=== PATIENT | male | born 1945 | race Caucasian/White ===

== ENCOUNTER 2017-05-18 16:12 | Inpatient (IN) | payer OTHER ==
[2017-05-18] MEDS ORDERED: SODIUM CHLORIDE 1,000 ML IV STA (16:22)
[2017-05-18] MEDS ORDERED: ALBUTEROL SO4 2.5/IPRATROPIUM 0.5 INH SOL 3 ML VIAL.NEB. NEB ONE ×2 (16:23→16:26)
[2017-05-18] MEDS ORDERED: ACETAMINOPHEN 1000 MG/100 ML VIAL (NON FORMULARY) IVPB ONE (16:25)
[2017-05-18 16:26] VITALS: BMI 45.7
[2017-05-18] MEDS ORDERED: ACETAMINOPHEN INJECTION 100 ML IVPB ONE (16:27)
--- NOTE | 2017-05-18 17:04 | PDOC ---
Attending Attestation - HPI HPI: 05/18/17 17:58 "The patient is a 71 year old male brought via EMS from a senior care, with a significant past medical history of Parkinson's, dementia, HTN, COPD, Edema, who presents to the emergency department with increased lethargy and shortness of breath since yesterday. On presentation it is noted that the patient's O2 saturation level was 85%. The patient denies chest pain, headache and dizziness. Denies fever, chills, nausea, vomit, diarrhea and constipation. Denies dysuria, frequency, urgency and hematuria. Allergies: None Past surgical history: None reported Social history: No alcohol, tobacco or drug use reported " - Physicial Exam PE: 05/18/17 17:58 "GENERAL: Lethargic but arousable HEAD: No signs of trauma EYES: PERRLA, EOMI, sclera anicteric, conjunctiva clear NECK: Normal ROM, supple, no lymphadenopathy, JVD, or masses LUNGS: Breath sounds decreased at the bases. No wheezes, and no crackles HEART: Regular rate and rhythm, normal S1 and S2, no murmurs, rubs or gallops ABDOMEN: Soft, nontender, normoactive bowel sounds. No guarding, no rebound. No masses EXTREMITIES: Normal range of motion, 2+ symmetric LE pitting edema. No clubbing or cyanosis. No cords, erythema, or tenderness NEUROLOGICAL: Normal speech, cranial nerves grossly intact SKIN: Warm, Dry, normal turgor, no rashes or lesions noted. Rectally afebrile" <Edgardo Griffiths - Last Filed: 05/18/17 17:58> - Resident Resident Name: Shaq Dodson - ED Attending Attestation I have performed the following: I have examined & evaluated the patient, The case was reviewed & discussed with the resident, I agree w/resident's findings & plan, Exceptions are as noted - Medical Decision Making 05/18/17 19:45 71-year-old male with a history of multiple medical problems including COPD and dementia presents to the emergency department with lethargy and hypoxia at 85%. Vitals otherwise unremarkable. Workup thus far including labs is remarkable only for some slight CO2 retention to 60, likely chronic given elevated bicarbonate at 30. Patient initially had wheezing however lung sounds were clear after nebs and wheezing has resolved. CT scan of the head is negative. Likely COPD exacerbation. Patient given dose of steroids. Patient to be admitted for further evaluation to Dr. Sharp. Case discussed in detail with admitting physician including history, physical exam and ancillary studies. Admitting physician has assumed care for the patient, will follow all pending diagnostics and will complete the evaluation and treatment. <Garfield George - Last Filed: 05/18/17 19:48>
[2017-05-18 17:05] LABS: HEMATOCRIT 40.1 % (35.4-49); HEMOGLOBIN 13.4 GM/dL (11.7-16.9); MCH 31.9 pg (25.7-33.7); MCHC 33.5 g/dl (32.0-35.9); MEAN CELL VOLUME 95.3 fl (80-96); MEAN PLT VOLUME 7.3 fl (7.5-11.1); PLATELET COUNT 155 K/MM3 (134-434); RBC 4.21 M/mm3 (4.00-5.60); RDW 14.3 % (11.9-15.9); VENOUS PH 7.32 (7.32-7.42); VENOUS PO2 43.3 mmHg (28-48); WHITE BLOOD COUNT 7.1 K/mm3 (4.0-10.0)
[2017-05-18 17:08] LABS: VENOUS PC02 60.5 mmHg (38-52)
[2017-05-18 17:17] LABS: INR 1.03 (0.82-1.09); PROTHROMBIN TIME (PATIENT) 11.6 SEC (9.98-11.88)
--- NOTE | 2017-05-18 17:18 | PDOC ---
History of Present Illness - General Chief Complaint: Weakness Stated Complaint: Weakness Time Seen by Provider: 05/18/17 16:17 - History of Present Illness Initial Comments: 05/18/17 17:21 The patient is a 71 year old male with a history of Parkinson's, dementia, HTN, COPD, Edema who presents for evaluation of lethargy and SOB. The patient presents from his NH for concerns of increased lethargy over the past 2 days. They note that he is normally alert and interactive, but has been more somulent. He was noted to have an O2 saturation to 85% prompting his presentation to the ED for evaluation. The patient denies any fevers, chills, chest pain, nausea, vomiting, abdominal pain, or changes with urination or bowel movements. Past History - Past Medical History Allergies/Adverse Reactions: Allergies Allergy/AdvReac Type Severity Reaction Status Date / Time No Known Allergies Allergy Verified 05/18/17 16:26 Home Medications: Ambulatory Orders Divalproex *ER* [Depakote *ER* -] 500 mg PO HS 05/18/17 Docusate Sodium [Colace] 100 mg PO BID 05/18/17 Ergocalciferol (Vitamin D2) [Vitamin D2] 50,000 unit PO FR 05/18/17 Ipratropium [place] [Atrovent Hfa] 1 inh IH BID 05/18/17 Levothyroxine [Synthroid -] 125 mcg PO DAILY 05/18/17 Lorazepam [Ativan] 0.5 mg PO TID 05/18/17 Losartan Potassium [Cozaar] 25 mg PO DAILY 05/18/17 Metformin HCl 500 mg PO BID 05/18/17 Metoprolol Tartrate 25 mg PO BID 05/18/17 Miconazole Nitrate [Zeasorb-AF] 1 applic TP BID 05/18/17 Olanzapine 20 mg PO HS 05/18/17 Quetiapine Fumarate [Seroquel] 100 tab PO HS 05/18/17 Simvastatin [Zocor -] 5 mg PO HS 05/18/17 Umeclidinium [place] [Incruse Ellipta] 1 inh IH DAILY 05/18/17 - Suicide/Smoking/Psychosocial Hx Smoking History: Unknown if ever smoked Hx Alcohol Use: No Drug/Substance Use Hx: No Review of Systems - Review of Systems Comments:: 05/18/17 17:23 Constitutional: Lethargy. No fevers, chills, fatigue, malaise HEENT: No Rhinorrhea, nasal congestion, visual changes Cardiovascular: No chest pain, syncope, palpitations, lightheadedness Respiratory: SOB, cough. No Hemoptysis, Gastrointestinal: No Abdominal pain, Nausea, Vomiting, Constipation, Diarrhea, Melena Genitourinary: No Dysuria, Frequency, Urgency, Hesitancy, Hematuria, Flank pain Musculoskeletal: No Myalgia, arthralgia Skin: No rashes, itching, bruising, pallor Neurologic: No Headache, Dizziness, Numbness, Weakness, or Tingling Psychiatric: No Hallucinations. No SI or HI *Physical Exam - Vital Signs Last Vital Signs Temp Pulse Resp BP Pulse Ox 98.9 F 74 16 104/55 85 L 05/18/17 16:28 05/18/17 16:15 05/18/17 16:15 05/18/17 16:15 05/18/17 16:15 - Physical Exam Comments: 05/18/17 17:24 General Appearance: Nourished. No Apparent Distress HEENT: EOMI, MIKE. No Pharyngeal Erythema, Tonsillar Exudate, Tonsillar Erythema Neck: No Cervical Lymphadenopathy Respiratory/Chest: Diffuse rhonchi and expiratory wheezing bilaterally noted on exam. No Crackles, Rales, Cardiovascular: Regular Rhythm, Regular Rate. No Murmur, Gallops, Rubs Gastrointestinal/Abdominal: Normal Bowel Sounds, Soft. No Guarding, Rebound, Tenderness Musculoskeletal: No CVA Tenderness Extremity: 2+ pitting edema in the lower extremities. Normal Capillary Refill Integumentary: Normal Color, Dry, Warm Neurologic: Oriented x1, Lethargic. Normal Mood/Affect, Following commands. ED Treatment Course - LABORATORY CBC & Chemistry Diagram: 05/18/17 16:40 05/18/17 16:40 - ADDITIONAL ORDERS Additional order review: Laboratory Results 05/18/17 16:40 VBG pH 7.32 POC VBG pCO2 60.5 H* POC VBG pO2 43.3 Mixed VBG HCO3 30.4 H 05/18/17 16:40 RBC 4.21 MCV 95.3 MCHC 33.5 RDW 14.3 MPV 7.3 L Neutrophils % No Result Required. Lymphocytes % No Result Required. - RADIOLOGY Radiology Studies Ordered: Category Date Time Status HEAD CT WITHOUT CONTRAST [CT] Stat CT Scan 05/18/17 17:06 Ordered CHEST X-RAY PORTABLE* [RAD] Stat Radiology 05/18/17 16:22 Taken - Medications Given in the ED: ED Medications Discontinued Medications Generic Name Dose Route Start Last Admin Trade Name Jazzy PRN Reason Stop Dose Admin Acetaminophen 1,000 mg 05/18/17 16:25 05/18/17 16:36 Ofirmev Injection - IVPB 05/18/17 16:26 Not Given ONCE ONE Albuterol/Ipratropium 1 amp 05/18/17 16:23 05/18/17 16:36 Duoneb - NEB 05/18/17 16:24 1 amp ONCE ONE Administration Sodium Chloride 1,000 mls @ 1,000 mls/hr 05/18/17 16:22 05/18/17 16:37 Normal Saline - IV 05/18/17 17:21 1,000 mls/hr ASDIR STA Administration Medical Decision Making - Medical Decision Making 05/18/17 17:27 The patient is a 71 year old male with a history of Parkinson's, dementia, HTN, COPD, Edema who presents for evaluation of lethargy and SOB. Differential includes but is not limited to: Pneumonia, COPD exacerbation, CHF exacerbation, Sepsis, Intracranial process, infectious, metabolic derangement. Given the patient's physical exam, it is possible his symptoms are due to a chf exacerbation with a copd exacerbation with a possible superimposed infection. We will obtain a cbc, cmp, lactate, troponin, vbg, chest plain film, bnp, and head ct to evaluate for other possible etiologies. We will continue to monitor and reassess. *DC/Admit/Observation/Transfer Diagnosis at time of Disposition: COPD exacerbation - Discharge Dispostion Condition at time of disposition: Stable Admit: Yes - Referrals Referrals: Sharon Bergman MD [Primary Care Provider] - - Patient Instructions - Post Discharge Activity
[2017-05-18 17:20] LABS: ACTIVATED PTT 26.7 SECONDS (26.9-34.4)
[2017-05-18 17:26] LABS: PLATELET ESTIMATE ADEQUATE
[2017-05-18 17:35] LABS: ALBUMIN 3.3 g/dl (3.4-5.0); ANION GAP 4 (8-16); BILIRUBIN,TOTAL 0.5 mg/dL (0.2-1.0); BLOOD UREA NITROGEN 18 mg/dL (7-18); CALCIUM 8.8 mg/dL (8.5-10.1); CHLORIDE 96 mmol/L (98-107); CO2 32 mmol/L (21-32); GLUCOSE,RANDOM 87 mg/dL (74-106); POTASSIUM 4.6 mmol/L (3.5-5.1); SGOT/AST 36 U/L (15-37); SGPT/ALT 17 U/L (12-78); SODIUM 132 mmol/L (136-145); TOT PROT 7.2 g/dl (6.4-8.2)
[2017-05-18 17:37] LABS: ALK PHOS 65 U/L (45-117)
[2017-05-18 18:18] LABS: URINE APPEARANCE CLEAR; URINE BILIRUBIN NEGATIVE (NEGATIVE); URINE BLOOD NEGATIVE (NEGATIVE); URINE COLOR YELLOW; URINE GLUCOSE (UA) NEGATIVE (NEGATIVE); URINE KETONE NEGATIVE (NEGATIVE); URINE LEUK ESTERASE NEGATIVE (NEGATIVE); URINE NITRITE NEGATIVE (NEGATIVE); URINE PROTEIN NEGATIVE (NEGATIVE)
[2017-05-18] MEDS ORDERED: methylPREDNISolone NA SUCC 125 MG/2 ML VIAL IVPUSH ONE (19:14)
[2017-05-18] MEDS ORDERED: methylPREDNISolone NA SUCC 125 MG/2 ML VIAL ONE (20:47)
--- NOTE | 2017-05-18 21:41 | HP ---
CHIEF COMPLAINT: Lethargy, Hypoxia PCP: Dr. Sharon Bergman HISTORY OF PRESENT ILLNESS: This is a 71 y/o man who presents [facility] the [facility] for increased lethargy x2 days. Patient received in the ED lethargic and was found to have an O2 sat of 85%. Patients VBG CO2- 60.5, HCO3 30.4 Patient responds to some verbal stimulus- name only. Limited HPI ER course was notable for: (1) Hypoxia- Spo2 85%~ 97% 3LNC (2) CO2- 60.5 (3) CT head- neg ICH, mild- mid periventricular ischemic changes are noted Recent Travel: None PAST MEDICAL HISTORY: Parkinson's Disease Dementia HTN COPD Edema PAST SURGICAL HISTORY: Social History: Smoking: Unknown Alcohol: None Drugs: None Resides at the [facility] Family History: Unable to obtain Allergies No Known Allergies Allergy (Verified 05/18/17 16:26) HOME MEDICATIONS: Home Medications Medication Instructions Recorded Divalproex *ER* [Depakote *ER* -] 500 mg PO HS 05/18/17 Docusate Sodium [Colace] 100 mg PO BID 05/18/17 Ergocalciferol (Vitamin D2) 50,000 unit PO FR 05/18/17 [Vitamin D2] Ipratropium [place] [Atrovent Hfa] 1 inh IH BID 05/18/17 Levothyroxine [Synthroid -] 125 mcg PO DAILY 05/18/17 Lorazepam [Ativan] 0.5 mg PO TID 05/18/17 Losartan Potassium [Cozaar] 25 mg PO DAILY 05/18/17 Metformin HCl 500 mg PO BID 05/18/17 Metoprolol Tartrate 25 mg PO BID 05/18/17 Miconazole Nitrate [Zeasorb-AF] 1 applic TP BID 05/18/17 Olanzapine 20 mg PO HS 05/18/17 Quetiapine Fumarate [Seroquel] 100 tab PO HS 05/18/17 Simvastatin [Zocor -] 5 mg PO HS 05/18/17 Umeclidinium [place] [Incruse 1 inh IH DAILY 05/18/17 Ellipta] REVIEW OF SYSTEMS CONSTITUTIONAL: Absent: fever, chills, diaphoresis, generalized weakness, malaise, loss of appetite, weight change HEENT: Absent: rhinorrhea, nasal congestion, throat pain, throat swelling, difficulty swallowing, mouth swelling, ear pain, eye pain, visual changes CARDIOVASCULAR: Absent: chest pain, syncope, palpitations, irregular heart rate, lightheadedness , peripheral edema RESPIRATORY: Absent: cough, shortness of breath, dyspnea with exertion, orthopnea, wheezing, stridor, hemoptysis GASTROINTESTINAL: Absent: abdominal pain, abdominal distension, nausea, vomiting, diarrhea, constipation, melena, hematochezia GENITOURINARY: Absent: dysuria, frequency, urgency, hesitancy, hematuria, flank pain, genital pain MUSCULOSKELETAL: Absent: myalgia, arthralgia, joint swelling, back pain, neck pain SKIN: Absent: rash, itching, pallor HEMATOLOGIC/IMMUNOLOGIC: Absent: easy bleeding, easy bruising, lymphadenopathy, frequent infections ENDOCRINE: Absent: unexplained weight gain, unexplained weight loss, heat intolerance, cold intolerance NEUROLOGIC: mental status changes Absent: headache, focal weakness or paresthesias, dizziness, unsteady gait, seizure, bladder or bowel incontinence PSYCHIATRIC: Absent: anxiety, depression, suicidal or homicidal ideation, hallucinations. PHYSICAL EXAMINATION Vital Signs - 24 hr 05/18/17 05/18/17 05/18/17 16:15 16:28 16:35 Temperature 98.9 F Pulse Rate 74 Pulse Rate [ Right] Respiratory 16 Rate Blood Pressure 104/55 Blood Pressure [Right Arm] O2 Sat by Pulse 85 L 97 Oximetry (%) 05/18/17 18:39 Temperature 98.0 F Pulse Rate Pulse Rate [ 80 Right] Respiratory 20 Rate Blood Pressure Blood Pressure 124/76 [Right Arm] O2 Sat by Pulse 100 Oximetry (%) GENERAL: Lethargic, responds to verbal/tactile stimulus, in no acute distress. HEAD: Normal with no signs of trauma. EYES: Pupils equal, round and reactive to light, sclera anicteric, conjunctiva clear. No lid lag. EARS, NOSE, THROAT: Ears normal, nares patent, oropharynx clear without exudates. Dry mucous membranes. NECK: Normal range of motion, supple without lymphadenopathy, JVD, or masses. LUNGS: Bibasilar diffuse crackles, with scattered wheeze noted bilaterally. No accessory muscle use HEART: Regular rate and rhythm, normal S1 and S2 without murmur, rub or gallop. ABDOMEN: Soft, obese, nontender, not distended, normoactive bowel sounds, no guarding, no rebound, no masses. No hepatomegaly or splenomegaly. MUSCULOSKELETAL: Normal range of motion at all joints. No bony deformities or tenderness. No CVA tenderness. UPPER EXTREMITIES: 2+ pulses, warm, well-perfused. No cyanosis. No clubbing. No peripheral edema. LOWER EXTREMITIES: 2+ pulses, warm, well-perfused. No calf tenderness. +2 pitting peripheral edema bilaterally from below knee down to bilateral feet. NEUROLOGICAL: Cranial nerves II-XII intact. Slowed speech. Gait not observed. PSYCHIATRIC: Cooperative. Limited eye contact. Appropriate mood and affect. SKIN: Warm, dry, normal turgor, no rashes or lesions noted, normal capillary refill. Laboratory Results - last 24 hr 05/18/17 05/18/17 05/18/17 16:35 16:40 16:40 WBC 7.1 RBC 4.21 Hgb 13.4 Hct 40.1 MCV 95.3 MCH 31.9 MCHC 33.5 RDW 14.3 Plt Count 155 MPV 7.3 L Total Counted 100 Neutrophils % No Result Required. Neutrophils % (Manual) 42.0 L Band Neutrophils % 2.0 Lymphocytes % No Result Required. Lymphocytes % (Manual) 28.0 Monocytes % (Manual) 19 H* Eosinophils % (Manual) 3.0 Myelocytes % (Man) 2 Metamyelocytes 4 H Platelet Estimate Adequate Platelet Comment No clumping noted PT with INR 11.60 INR 1.03 PTT (Actin FS) 26.7 L VBG pH POC VBG pCO2 POC VBG pO2 Mixed VBG HCO3 Sodium Potassium Chloride Carbon Dioxide Anion Gap BUN Creatinine Creat Clearance w eGFR Random Glucose Lactic Acid Calcium Total Bilirubin AST ALT Alkaline Phosphatase Creatine Kinase Creatine Kinase Index CK-MB (CK-2) Troponin I B-Natriuretic Peptide 195.67 H Total Protein Albumin Urine Color Urine Appearance Urine pH Ur Specific [place] Urine Protein Urine Glucose (UA) Urine Ketones Urine Blood Urine Nitrite Urine Bilirubin Urine Urobilinogen Ur Leukocyte Esterase Blood Type Antibody Screen 05/18/17 05/18/17 05/18/17 16:40 16:40 16:40 WBC RBC Hgb Hct MCV MCH MCHC RDW Plt Count MPV Total Counted Neutrophils % Neutrophils % (Manual) Band Neutrophils % Lymphocytes % Lymphocytes % (Manual) Monocytes % (Manual) Eosinophils % (Manual) Myelocytes % (Man) Metamyelocytes Platelet Estimate Platelet Comment PT with INR INR PTT (Actin FS) VBG pH 7.32 POC VBG pCO2 60.5 H* POC VBG pO2 43.3 Mixed VBG HCO3 30.4 H Sodium 132 L Potassium 4.6 Chloride 96 L Carbon Dioxide 32 Anion Gap 4 L BUN 18 Creatinine 1.0 Creat Clearance w eGFR > 60 Random Glucose 87 Lactic Acid 1.7 Calcium 8.8 Total Bilirubin 0.5 AST 36 ALT 17 Alkaline Phosphatase 65 Creatine Kinase 788 H Creatine Kinase Index 0.7 CK-MB (CK-2) 5.626 H Troponin I < 0.02 B-Natriuretic Peptide Total Protein 7.2 Albumin 3.3 L Urine Color Urine Appearance Urine pH Ur Specific [place] Urine Protein Urine Glucose (UA) Urine Ketones Urine Blood Urine Nitrite Urine Bilirubin Urine Urobilinogen Ur Leukocyte Esterase Blood Type Antibody Screen 05/18/17 05/18/17 16:40 17:30 WBC RBC Hgb Hct MCV MCH MCHC RDW Plt Count MPV Total Counted Neutrophils % Neutrophils % (Manual) Band Neutrophils % Lymphocytes % Lymphocytes % (Manual) Monocytes % (Manual) Eosinophils % (Manual) Myelocytes % (Man) Metamyelocytes Platelet Estimate Platelet Comment PT with INR INR PTT (Actin FS) VBG pH POC VBG pCO2 POC VBG pO2 Mixed VBG HCO3 Sodium Potassium Chloride Carbon Dioxide Anion Gap BUN Creatinine Creat Clearance w eGFR Random Glucose Lactic Acid Calcium Total Bilirubin AST ALT Alkaline Phosphatase Creatine Kinase Creatine Kinase Index CK-MB (CK-2) Troponin I B-Natriuretic Peptide Total Protein Albumin Urine Color Yellow Urine Appearance Clear Urine pH 5.0 Ur Specific [place] 1.018 Urine Protein Negative Urine Glucose (UA) Negative Urine Ketones Negative Urine Blood Negative Urine Nitrite Negative Urine Bilirubin Negative Urine Urobilinogen 2.0 Ur Leukocyte Esterase Negative Blood Type O POSITIVE Antibody Screen Negative ASSESSMENT/PLAN: This is a 71 y/o man with a PMHx of: Parkinson's, Dementia, HTN, COPD, Peripheral Edema. Admitted for Acute on Chronic COPD Exacerbation, Lethargy FEN - Replete lytes prn - NPO Code Status: Full Code Dispo: Requires Inpatient Care Problem List - Problem (1) Acute exacerbation of chronic obstructive pulmonary disease (COPD) Assessment/Plan: - Chest Xray- reviewed - VBG- CO2- 60 - Ordered BIPAP - ABG - Continue Solumederol - Duonebs - Appreciate Pulmonology consult - Monitor vitals - CBCD, BMP in am Code(s): J44.1 - CHRONIC OBSTRUCTIVE PULMONARY DISEASE W (ACUTE) EXACERBATION (2) Lethargy Assessment/Plan: - Likely secondary to Hypercapnia vs Advanced disease process - Head CT-neg ICH, mild-mid periventrical chronic microvascular is chronic changes are noted - Will place patient on BIPAP and trend ABGs - Monitor CBCD, BMP - Monitor vitals - Fall Precautions Code(s): R53.83 - OTHER FATIGUE (3) HTN (hypertension) Assessment/Plan: - Stable - Continue home meds with parameters - Monitor renal function Code(s): I10 - ESSENTIAL (PRIMARY) HYPERTENSION (4) Parkinson's disease Assessment/Plan: - Continue to monitor and treat with interventions accordingly - Fall Precautions Code(s): G20 - PARKINSON'S DISEASE (5) Dementia Assessment/Plan: - Continue to monitor - Will hold meds for now, until patient is lucid Code(s): F03.90 - UNSPECIFIED DEMENTIA WITHOUT BEHAVIORAL DISTURBANCE (6) Peripheral edema Assessment/Plan: - Continue Lasix - Elevate extremities - Strict INOs Code(s): R60.9 - EDEMA, UNSPECIFIED (7) DVT prophylaxis Assessment/Plan: - OOB - Heparin SQ Code(s): [id number] - Visit type - Emergency Visit Emergency Visit: Yes ED Registration Date: 05/18/17 Care time: The patient presented to the Emergency Department on the above date and was hospitalized for further evaluation of their emergent condition. - New Patient This patient is new to me today: Yes Date on this admission: 05/18/17 - Critical Care Critical Care patient: No
[2017-05-19 01:05] LABS: ARTERIAL BLD GAS O2 SATURATION 97.6 % (90-98.9); ARTERIAL BLOOD GAS BASE EXCESS 3.5 meq/l (-2-2); ARTERIAL BLOOD GAS pH 7.34 (7.35-7.45); CARBOXYHEMOGLOBIN 1.6 gm% (0.5-2.0)
[2017-05-19 01:13] LABS: ALLENS TEST POSITIVE
[2017-05-19] MEDS: methylPREDNISolone NA SUCC 40 MG/1 ML VIAL IVPUSH SCH ×2 (03:11→09:46)
[2017-05-19] MEDS ORDERED: ALBUTEROL SO4 2.5/IPRATROPIUM 0.5 INH SOL 3 ML VIAL.NEB. NEB PRN (06:33)
[2017-05-19 06:50] LABS: ARTERIAL BLD GAS O2 SATURATION 99.5 % (90-98.9); ARTERIAL BLOOD GAS BASE EXCESS 4.5 meq/l (-2-2); ARTERIAL BLOOD GAS PCO2 51.4 mmHg (35-45); ARTERIAL BLOOD GAS pH 7.39 (7.35-7.45)
[2017-05-19 06:51] LABS: ALLENS TEST POSITIVE
[2017-05-19] MEDS: LEVOTHYROXINE NA 125 MCG TABLET (FP) PO SCH (07:09)
[2017-05-19] MEDS: metFORMIN HCL 500 MG TABLET (FP) PO SCH ×2 (07:09→16:48)
[2017-05-19 08:19] LABS: BASO % 0.5 % (0-2.0); EOS % 0.1 % (0-4.5); HEMATOCRIT 41.3 % (35.4-49); HEMOGLOBIN 13.8 GM/dL (11.7-16.9); LYMPH % 14.6 % (8-40); MCH 31.7 pg (25.7-33.7); MCHC 33.3 g/dl (32.0-35.9); MEAN CELL VOLUME 95.1 fl (80-96); MEAN PLT VOLUME 7.2 fl (7.5-11.1); MONO % 2.8 % (3.8-10.2); PLATELET COUNT 157 K/MM3 (134-434); RBC 4.35 M/mm3 (4.00-5.60); RDW 14.6 % (11.9-15.9); WHITE BLOOD COUNT 7.8 K/mm3 (4.0-10.0)
[2017-05-19 08:48] LABS: ANION GAP 5 (8-16); BLOOD UREA NITROGEN 17 mg/dL (7-18); CALCIUM 8.5 mg/dL (8.5-10.1); CHLORIDE 98 mmol/L (98-107); CO2 30 mmol/L (21-32); CREATININE 0.7 mg/dL (0.7-1.3); GLUCOSE,RANDOM 116 mg/dL (74-106); MAGNESIUM 2.2 mg/dL (1.8-2.4); PHOSPHOROUS 2.8 mg/dL (2.5-4.9); POTASSIUM 4.8 mmol/L (3.5-5.1); SODIUM 133 mmol/L (136-145)
[2017-05-19] MEDS: METOPROLOL TARTRATE 25 MG TABLET (FP) PO SCH ×2 (09:46→22:53)
[2017-05-19] MEDS: DOCUSATE SODIUM 100 MG CAPSULE (FP) PO SCH ×2 (09:47→22:54)
[2017-05-19] MEDS: LOSARTAN POTASSIUM 25 MG TABLET PO SCH (09:47)
[2017-05-19] MEDS ORDERED: UMECLIDINIUM BROMIDE IH SCH (10:00)
--- NOTE | 2017-05-19 12:11 | CON.PULM ---
Consult Consult Specialty:: PULM/CCM Referred by:: ANAIS Reason for Consultation:: SOB - History of Present Illness Chief Complaint: Lethargy History of Present Illness: 71 M, history of Parkinson's, dementia, HTN, COPD, and CHF. Admitted for the SNF due to lethargy and SOB over the past 2 days. Apparently he is normally alert and interactive. VBG was drawn with PCO2 of 58. He was placed on NIPPV. Currently he is on NC O2. He is awake and alert. Repeat ABG reveals a well compensated chronic respiratory acidosis. CXR: mild increase in vascular markings / no focal infiltrate noted. - History Source History Provided By: Patient, Medical Record Limitations to Obtaining History: Dementia - Alcohol/Substance Use Hx Alcohol Use: No - Smoking History Smoking history: Unknown if ever smoked Home Medications - Allergies Allergies/Adverse Reactions: Allergies Allergy/AdvReac Type Severity Reaction Status Date / Time No Known Allergies Allergy Verified 05/18/17 16:26 - Home Medications Home Medications: Ambulatory Orders Divalproex *ER* [Depakote *ER* -] 500 mg PO HS 05/18/17 Docusate Sodium [Colace] 100 mg PO BID 05/18/17 Ergocalciferol (Vitamin D2) [Vitamin D2] 50,000 unit PO FR 05/18/17 Ipratropium [place] [Atrovent Hfa] 1 inh IH BID 05/18/17 Levothyroxine [Synthroid -] 125 mcg PO DAILY 05/18/17 Lorazepam [Ativan] 0.5 mg PO TID 05/18/17 Losartan Potassium [Cozaar] 25 mg PO DAILY 05/18/17 Metformin HCl 500 mg PO BID 05/18/17 Metoprolol Tartrate 25 mg PO BID 05/18/17 Miconazole Nitrate [Zeasorb-AF] 1 applic TP BID 05/18/17 Olanzapine 20 mg PO HS 05/18/17 Quetiapine Fumarate [Seroquel] 100 tab PO HS 05/18/17 Simvastatin [Zocor -] 5 mg PO HS 05/18/17 Umeclidinium [place] [Incruse Ellipta] 1 inh IH DAILY 05/18/17 Review of Systems - Review of Systems Constitutional: reports: Lethargy, Malaise. denies: Chills, Fever, Night Sweats Eyes: reports: No Symptoms HENT: reports: No Symptoms Neck: reports: No Symptoms Cardiovascular: reports: Shortness of Breath. denies: Chest Pain, Edema, Palpitations Respiratory: reports: Cough, Snoring, SOB. denies: Hemoptysis, Wheezing Gastrointestinal: reports: No Symptoms Genitourinary: reports: No Symptoms Breasts: reports: No Symptoms Reported Musculoskeletal: reports: No Symptoms Integumentary: reports: No Symptoms Neurological: reports: No Symptoms Endocrine: reports: No Symptoms Hematology/Lymphatic: reports: No Symptoms Psychiatric: reports: No Symptoms Physical Exam Vital Sings: Vital Signs Temperature 98.6 F 05/19/17 08:00 Pulse Rate 84 05/19/17 08:00 Respiratory Rate 18 05/19/17 08:00 Blood Pressure 125/69 05/19/17 08:00 O2 Sat by Pulse Oximetry (%) 91 L 05/19/17 07:55 Constitutional: Yes: No Distress, Obese Eyes: Yes: Conjunctiva Clear, EOM Intact HENT: Yes: Atraumatic, Normocephalic Neck: Yes: Supple, Trachea Midline Cardiovascular: Yes: Regular Rate and Rhythm Respiratory: Yes: Diminished, On Nasal O2, Rhonchi. No: Accessory Muscle Use, SOB, Stridor, Tachypnea, Wheezes ...Inspection: Yes: WNL ...Clubbing: No Gastrointestinal: Yes: Normal Bowel Sounds, Soft Renal/: Yes: WNL Breast(s): Yes: WNL Musculoskeletal: Yes: WNL Extremities: Yes: WNL Edema: No Peripheral Pulses WNL: Yes Integumentary: Yes: WNL Neurological: Yes: WNL, Alert, Oriented ...Motor Strength: WNL Psychiatric: Yes: WNL, Alert, Oriented Labs: CBC, BMP 05/19/17 07:00 05/19/17 07:00 ABG Results ABG pH 7.39 (7.35-7.45) 05/19/17 06:30 ABG pCO2 at Pt Temp 51.4 mmHg (35-45) H 05/19/17 06:30 ABG pO2 at Pt Temp 198.0 mmHg (70-100) H* D 05/19/17 06:30 ABG HCO3 30.2 meq/L (22-26) H 05/19/17 06:30 ABG O2 Sat (Measured) 99.5 % (90-98.9) H 05/19/17 06:30 ABG O2 Content 19.2 % vol (15-22) 05/19/17 06:30 ABG Base Excess 4.5 meq/l (-2-2) H 05/19/17 06:30 Imaging - Results Chest X-ray: Report Reviewed, Image Reviewed Problem List - Problems (1) Acute exacerbation of chronic obstructive pulmonary disease (COPD) Code(s): J44.1 - CHRONIC OBSTRUCTIVE PULMONARY DISEASE W (ACUTE) EXACERBATION (2) Dementia Code(s): F03.90 - UNSPECIFIED DEMENTIA WITHOUT BEHAVIORAL DISTURBANCE (3) HTN (hypertension) Code(s): I10 - ESSENTIAL (PRIMARY) HYPERTENSION (4) Lethargy Code(s): R53.83 - OTHER FATIGUE (5) Parkinson's disease Code(s): G20 - PARKINSON'S DISEASE Assessment/Plan Short course of Prednsione O2 as needed NIPPV only as needed Aspiration precautions Would monitor off ABX Should have sleep screen after D/C for OSAS BD TX Will follow Thank you. Dr Rojo
--- NOTE | 2017-05-19 12:14 | EKG ---
Test Reason : Blood Pressure : / mmHG Vent. Rate : 076 BPM Atrial Rate : 076 BPM P-R Int : 140 ms QRS Dur : 106 ms QT Int : 376 ms P-R-T Axes : 047 -37 013 degrees QTc Int : 423 ms NORMAL SINUS RHYTHM LEFT AXIS DEVIATION MINIMAL VOLTAGE CRITERIA FOR LVH, MAY BE NORMAL VARIANT NONSPECIFIC ST ABNORMALITY ABNORMAL ECG NO PREVIOUS ECGS AVAILABLE Confirmed by CONNIE RAWLS MD ([id number]) on 05/19/2017 12:14:21 PM Referred By: Confirmed By:CONNIE RAWLS MD
[2017-05-19] MEDS ORDERED: ALBUTEROL SO4 0.083% IH SOL 2.5 MG/3 ML VIAL.NEB. NEB PRN (12:20)
--- NOTE | 2017-05-19 13:02 | PN ---
Progress Note, Physician History of Present Illness: pt seen/ examined feels better decreased sob. denies cp. morbidly obese pt is smoker- unwilling to quit pt mostly wheelchair bound- says dont walk much. - Current Medication List Current Medications: Active Medications Albuterol Sulfate (Ventolin 0.083% Nebulizer Soln -) 1 amp NEB Q4H PRN PRN Reason: SHORT OF BREATH/WHEEZING Albuterol/Ipratropium (Duoneb -) 1 amp NEB RTID [facility] Divalproex Sodium (Depakote *Er* -) 500 mg PO HS [facility] Docusate Sodium (Colace -) 100 mg PO BID [facility] Last Admin: 05/19/17 09:47 Dose: Not Given Ergocalciferol (Drisdol -) 50,000 unit PO Fr@1000 [facility] Levothyroxine Sodium (Synthroid -) 125 mcg PO DAILY@0700 [facility] Last Admin: 05/19/17 07:09 Dose: 125 mcg Losartan Potassium (Cozaar -) 25 mg PO DAILY [facility] Last Admin: 05/19/17 09:47 Dose: 25 mg Metformin HCl (Glucophage -) 500 mg PO BID@0700,1630 [facility] Last Admin: 05/19/17 07:09 Dose: 500 mg Metoprolol Tartrate (Lopressor -) 25 mg PO BID [facility] Last Admin: 05/19/17 09:46 Dose: 25 mg Non-Formulary Medication (Simvastatin) 5 mg PO [facility] Prednisone (Deltasone -) 40 mg PO DAILY [facility] Stop: 05/22/17 10:01 - Objective Vital Signs: Vital Signs Temperature 98.6 F 05/19/17 08:00 Pulse Rate 84 05/19/17 08:00 Respiratory Rate 18 05/19/17 08:00 Blood Pressure 125/69 05/19/17 08:00 O2 Sat by Pulse Oximetry (%) 92 L 05/19/17 12:15 Constitutional: Yes: No Distress, Calm, Obese Eyes: Yes: Conjunctiva Clear Neck: Yes: Supple Cardiovascular: Yes: Regular Rate and Rhythm Respiratory: Yes: Diminished, Hyperresonant, Poor Air Entry Gastrointestinal: Yes: Soft, Abdomen, Obese Edema: LLE: 2+, RLE: 2+ Neurological: Yes: Alert Labs: CBC, BMP 05/19/17 07:00 05/19/17 07:00 INR, PTT INR 1.03 (0.82-1.09) 05/18/17 16:40 Problem List - Problems (1) Acute exacerbation of chronic obstructive pulmonary disease (COPD) Code(s): J44.1 - CHRONIC OBSTRUCTIVE PULMONARY DISEASE W (ACUTE) EXACERBATION (2) Dementia Code(s): F03.90 - UNSPECIFIED DEMENTIA WITHOUT BEHAVIORAL DISTURBANCE (3) HTN (hypertension) Code(s): I10 - ESSENTIAL (PRIMARY) HYPERTENSION (4) Peripheral edema Code(s): R60.9 - EDEMA, UNSPECIFIED Assessment/Plan clinically better Pulmonary consult noted/ appreciated add lasix physical therapy will order echo . smoking cessation counselling . will follow Anticipate short stay
[2017-05-19] MEDS: predniSONE 20 MG TABLET (UD) PO SCH (13:38)
[2017-05-19] MEDS: ALBUTEROL SO4 2.5/IPRATROPIUM 0.5 INH SOL 3 ML VIAL.NEB. NEB SCH ×2 (14:05→20:45)
[2017-05-19] MEDS: FUROSEMIDE 40 MG TABLET (FP) PO SCH (14:33)
[2017-05-19] MEDS ORDERED: DIVALPROEX NA *ER* EXTEND REL 500 MG TABLET.SA (FP) PO SCH (22:00)
[2017-05-19] MEDS ORDERED: PT OWN MED DRAWER 7, Y5N ONE (22:21)
[2017-05-19] MEDS ORDERED: ATORVASTATIN CA 10 MG TABLET (FP) PO SCH (22:45)
[2017-05-19] MEDS ORDERED: VALPROATE SODIUM 250 MG/5 ML UNIT DOSE CUP PO SCH (22:45)
[2017-05-19] MEDS: HEPARIN NA (PORCINE) 5,000 UNITS/ML 1ML VIAL SQ SCH (22:53)
[2017-05-20 06:16] VITALS: TEMP 98.4
[2017-05-20] MEDS: metFORMIN HCL 500 MG TABLET (FP) PO SCH (06:27)
[2017-05-20] MEDS: LEVOTHYROXINE NA 125 MCG TABLET (FP) PO SCH (06:27)
[2017-05-20] MEDS: ALBUTEROL SO4 2.5/IPRATROPIUM 0.5 INH SOL 3 ML VIAL.NEB. NEB SCH ×2 (07:57→13:00)
[2017-05-20 08:53] LABS: ALBUMIN 3.1 g/dl (3.4-5.0); ANION GAP 5 (8-16); BILIRUBIN,TOTAL 0.4 mg/dL (0.2-1.0); BLOOD UREA NITROGEN 25 mg/dL (7-18); CALCIUM 8.6 mg/dL (8.5-10.1); CHLORIDE 97 mmol/L (98-107); CHOLESTEROL 148 mg/dL (50-200); CO2 33 mmol/L (21-32); CREATININE 0.9 mg/dL (0.7-1.3); GLUCOSE,RANDOM 109 mg/dL (74-106); HDL CHOLESTEROL 33 mg/dL (40-60); LDL CHOLESTEROL (ONLY SJRH) 100 mg/dL (5-100); SGOT/AST 23 U/L (15-37); SGPT/ALT 13 U/L (12-78); SODIUM 135 mmol/L (136-145); TOT PROT 6.9 g/dl (6.4-8.2); TRIGLYCERIDES 106 mg/dL (35-160)
[2017-05-20 08:58] LABS: BASO % 0.3 % (0-2.0); EOS % 0.1 % (0-4.5); HEMATOCRIT 37.5 % (35.4-49); HEMOGLOBIN 12.6 GM/dL (11.7-16.9); LYMPH % 15.6 % (8-40); MCH 31.8 pg (25.7-33.7); MCHC 33.6 g/dl (32.0-35.9); MEAN CELL VOLUME 94.4 fl (80-96); MEAN PLT VOLUME 7.5 fl (7.5-11.1); MONO % 18.1 % (3.8-10.2); NEUT % 65.9 % (42.8-82.8); PLATELET COUNT 165 K/MM3 (134-434); RBC 3.98 M/mm3 (4.00-5.60); RDW 13.9 % (11.9-15.9); WHITE BLOOD COUNT 13.7 K/mm3 (4.0-10.0)
[2017-05-20 09:02] LABS: ALK PHOS 54 U/L (45-117)
[2017-05-20] MEDS: predniSONE 20 MG TABLET (UD) PO SCH (10:30)
[2017-05-20] MEDS: DOCUSATE SODIUM 100 MG CAPSULE (FP) PO SCH (10:30)
[2017-05-20] MEDS: METOPROLOL TARTRATE 25 MG TABLET (FP) PO SCH (10:30)
[2017-05-20] MEDS: LOSARTAN POTASSIUM 25 MG TABLET PO SCH (10:30)
[2017-05-20] MEDS: FUROSEMIDE 40 MG TABLET (FP) PO SCH (10:30)
[2017-05-20] MEDS: HEPARIN NA (PORCINE) 5,000 UNITS/ML 1ML VIAL SQ SCH (10:30)
--- NOTE | 2017-05-20 11:46 | PN ---
Progress Note (short form) - Note Progress Note: Appears clinically stable. Reports feeling better. No acute events overnight. Intake & Output 05/17/17 05/18/17 05/19/17 05/20/17 23:59 23:59 23:59 23:59 Intake Total 750 1400 Balance 750 1400 Weight 234 lb Last Vital Signs Temp Pulse Resp BP Pulse Ox 98.4 F 101 H 20 106/72 95 05/20/17 06:15 05/20/17 08:18 05/20/17 06:15 05/20/17 06:15 05/20/17 08:18 Active Medications Albuterol Sulfate (Ventolin 0.083% Nebulizer Soln -) 1 amp NEB Q4H PRN PRN Reason: SHORT OF BREATH/WHEEZING Albuterol/Ipratropium (Duoneb -) 1 amp NEB RTID [facility] Last Admin: 05/20/17 07:57 Dose: 1 amp Atorvastatin Calcium (Lipitor -) 10 mg PO HS [facility] Last Admin: 05/19/17 22:55 Dose: 10 mg Docusate Sodium (Colace -) 100 mg PO BID [facility] Last Admin: 05/20/17 10:30 Dose: 100 mg Ergocalciferol (Drisdol -) 50,000 unit PO Fr@1000 [facility] Furosemide (Lasix -) 40 mg PO DAILY [facility] Last Admin: 05/20/17 10:30 Dose: 40 mg Heparin Sodium (Porcine) (Heparin -) 5,000 unit SQ BID [facility] Last Admin: 05/20/17 10:30 Dose: 5,000 unit Levothyroxine Sodium (Synthroid -) 125 mcg PO DAILY@0700 [facility] Last Admin: 05/20/17 06:27 Dose: 125 mcg Losartan Potassium (Cozaar -) 25 mg PO DAILY [facility] Last Admin: 05/20/17 10:30 Dose: 25 mg Metformin HCl (Glucophage -) 500 mg PO BID@0700,1630 [facility] Last Admin: 05/20/17 06:27 Dose: 500 mg Metoprolol Tartrate (Lopressor -) 25 mg PO BID [facility] Last Admin: 05/20/17 10:30 Dose: 25 mg Prednisone (Deltasone -) 40 mg PO DAILY [facility] Stop: 05/22/17 10:01 Last Admin: 05/20/17 10:30 Dose: 40 mg Valproate Sodium (Depakene -) 500 mg PO [facility] Last Admin: 05/19/17 22:52 Dose: 500 mg Constitutional: Yes: No Distress, Obese Eyes: Yes: Conjunctiva Clear, EOM Intact HENT: Yes: Atraumatic, Normocephalic Neck: Yes: Supple, Trachea Midline Cardiovascular: Yes: Regular Rate and Rhythm Respiratory: Yes: Diminished, On Nasal O2, Rhonchi. No: Accessory Muscle Use, SOB, Stridor, Tachypnea, Wheezes ...Inspection: Yes: WNL ...Clubbing: No Gastrointestinal: Yes: Normal Bowel Sounds, Soft Renal/: Yes: WNL Breast(s): Yes: WNL Musculoskeletal: Yes: WNL Extremities: Yes: WNL Edema: No Peripheral Pulses WNL: Yes Integumentary: Yes: WNL Neurological: Yes: WNL, Alert, Oriented ...Motor Strength: WNL Psychiatric: Yes: WNL, Alert, Oriented Labs: Laboratory Results - last 24 hr 05/20/17 05/20/17 05/20/17 07:30 07:30 07:30 WBC 13.7 H D RBC 3.98 L Hgb 12.6 Hct 37.5 MCV 94.4 MCH 31.8 MCHC 33.6 RDW 13.9 Plt Count 165 MPV 7.5 Neutrophils % 65.9 Lymphocytes % 15.6 Monocytes % 18.1 H D Eosinophils % 0.1 Basophils % 0.3 Sodium 135 L Potassium 4.0 Chloride 97 L Carbon Dioxide 33 H Anion Gap 5 L BUN 25 H D Creatinine 0.9 D Creat Clearance w eGFR > 60 Random Glucose 109 H Hemoglobin A1c % 6.3 H Calcium 8.6 Total Bilirubin 0.4 AST 23 D ALT 13 D Alkaline Phosphatase 54 Total Protein 6.9 Albumin 3.1 L Triglycerides 106 Cholesterol 148 Total LDL Cholesterol 100 HDL Cholesterol 33 L TSH 0.94 Valproic Acid 05/20/17 07:30 WBC RBC Hgb Hct MCV MCH MCHC RDW Plt Count MPV Neutrophils % Lymphocytes % Monocytes % Eosinophils % Basophils % Sodium Potassium Chloride Carbon Dioxide Anion Gap BUN Creatinine Creat Clearance w eGFR Random Glucose Hemoglobin A1c % Calcium Total Bilirubin AST ALT Alkaline Phosphatase Total Protein Albumin Triglycerides Cholesterol Total LDL Cholesterol HDL Cholesterol TSH Valproic Acid 59.137 Problem List - Problems (1) Acute exacerbation of chronic obstructive pulmonary disease (COPD) Code(s): J44.1 - CHRONIC OBSTRUCTIVE PULMONARY DISEASE W (ACUTE) EXACERBATION (2) Dementia Code(s): F03.90 - UNSPECIFIED DEMENTIA WITHOUT BEHAVIORAL DISTURBANCE (3) HTN (hypertension) Code(s): I10 - ESSENTIAL (PRIMARY) HYPERTENSION (4) Lethargy Code(s): R53.83 - OTHER FATIGUE (5) Parkinson's disease Code(s): G20 - PARKINSON'S DISEASE Assessment/Plan Prednsione O2 as needed Monitor off ABX Should have sleep screen after D/C for OSAS BD TX No pulmonary contraindication for D/C to SNF Dr Rojo Problem List - Problems (1) Acute exacerbation of chronic obstructive pulmonary disease (COPD) Code(s): J44.1 - CHRONIC OBSTRUCTIVE PULMONARY DISEASE W (ACUTE) EXACERBATION (2) Dementia Code(s): F03.90 - UNSPECIFIED DEMENTIA WITHOUT BEHAVIORAL DISTURBANCE (3) HTN (hypertension) Code(s): I10 - ESSENTIAL (PRIMARY) HYPERTENSION (4) Lethargy Code(s): R53.83 - OTHER FATIGUE (5) Parkinson's disease Code(s): G20 - PARKINSON'S DISEASE
--- NOTE | 2017-05-20 11:47 | DS ---
Physical Examination Vital Signs: Vital Signs Temperature 98.4 F 05/20/17 06:15 Pulse Rate 101 H 05/20/17 08:18 Respiratory Rate 20 05/20/17 06:15 Blood Pressure 106/72 05/20/17 06:15 O2 Sat by Pulse Oximetry (%) 95 05/20/17 08:18 Findings/Remarks: feels much better. leg edema resolved wants to go back. mood stable denies cp/ sob. no abd pain. Constitutional: Yes: No Distress, Calm, Obese Eyes: Yes: Conjunctiva Clear Neck: Yes: Supple Cardiovascular: Yes: Regular Rate and Rhythm Respiratory: Yes: CTA Bilaterally Gastrointestinal: Yes: Normal Bowel Sounds, Soft Edema: No Neurological: Yes: Alert Labs: CBC, BMP 05/20/17 07:30 05/20/17 07:30 Discharge Summary Reason For Visit: ACUTE EXACERBATION OF CHRONIC OBSTRUCTURE PULMONAR Current Active Problems Acute exacerbation of chronic obstructive pulmonary disease (COPD) (Acute) COPD exacerbation (Acute) DVT prophylaxis (Acute) Dementia (Acute) HTN (hypertension) (Acute) Lethargy (Acute) Parkinson's disease (Acute) Peripheral edema (Acute) Hospital Course: admitted for acute copd exac. treated with steroids also had leg edema got lasix 40 mg dose- resolved now much better will discharge will decrease lasix 20 mg dose echo as out pt b blockers with caution. pt smoker - smoking cessation counselling provided. meds reconcilled discussed with Dr. Darnell also. ct head also done- ventricular atrophy overall stable d/c time 35 min in documenting/ examining and coordating care. discussed with nursing staff also oxygen prn Condition: Improved - Instructions Referrals: Sharon Bergman MD [Primary Care Provider] - Disposition: [facility] - Home Medications Comprehensive Discharge Medication List: Ambulatory Orders Divalproex *ER* [Depakote *ER* -] 500 mg PO HS 05/18/17 Docusate Sodium [Colace] 100 mg PO BID 05/18/17 Ergocalciferol (Vitamin D2) [Vitamin D2] 50,000 unit PO FR 05/18/17 Ipratropium [place] [Atrovent Hfa] 1 inh IH BID 05/18/17 Levothyroxine [Synthroid -] 125 mcg PO DAILY 05/18/17 Lorazepam [Ativan] 0.5 mg PO TID 05/18/17 Losartan Potassium [Cozaar] 25 mg PO DAILY 05/18/17 Metformin HCl 500 mg PO BID 05/18/17 Metoprolol Tartrate 25 mg PO BID 05/18/17 Miconazole Nitrate [Zeasorb-AF -] 1 applic TP BID 05/18/17 Olanzapine 20 mg PO HS 05/18/17 Quetiapine Fumarate [Seroquel] 100 tab PO HS 05/18/17 Simvastatin [Zocor -] 5 mg PO HS 05/18/17 Umeclidinium [place] [Incruse Ellipta] 1 inh IH DAILY 05/18/17 Albuterol 0.083% Nebulizer [place] [Ventolin 0.083% Nebulizer Soln -] 1 amp NEB Q4H PRN amp 05/20/17 Albuterol 2.5/Ipratropium 0.5 [Duoneb -] 1 amp NEB RTID amp 05/20/17 Furosemide [Lasix] 20 mg PO DAILY #30 tablet 05/20/17 Heparin - 5,000 unit SQ BID vial 05/20/17 Prednisone 10 mg PO DAILY #30 tablet 05/20/17
[2017-05-20 12:30] VITALS: BP 117/56; PULSE 80
[2017-05-25] MEDS ORDERED: ERGOCALCIFEROL (VITAMIN D2) 50,000 UNIT CAPSULE (FP) PO SCH (10:00)
== END 2017-05-20 16:08 | DRG 191 ==
LOC: JER 16:12 → JERBED 19:46 → J6S 05-19 00:21
PROVIDERS: ADMIT Internal Medicine; ATTEND Internal Medicine
DX: J44.1 Chronic obstructive pulmonary disease with (acute) exacerbation (principal); E87.2 Acidosis; F03.90 Unspecified dementia, unspecified severity, without behavioral disturbance, psychotic disturbance, mood disturbance, and anxiety; I10 Essential (primary) hypertension; G20 Parkinson's disease; R60.9 Edema, unspecified
CPT/HCPCS: 36415; 36600; 70450-TC; 71045-TC-FY; 80048; 80053; 80061; 80164; 81003; 82375; 82550; 82553; 82803; 82962; 83036; 83050; 83605; 83721; 83735; 83880; 84100; 84443; 84484; 85025; 85610; 85730; 86850; 86900; 86901; 87040; 87086; 93005; 93010; 94640; 94660; 99285-25; J1644

== ENCOUNTER 2019-03-27 12:02 | Inpatient (IN) | payer OTHER ==
[2019-03-27] MEDS ORDERED: PIPERACILLIN/TAZOB 3.375 GM 3.375 GM in DEXTROSE 5%-WATER - 50 ML IVPB ONE (12:25)
[2019-03-27] MEDS ORDERED: VANCOMYCIN HCL 1,500 MG in DEXTROSE 5%-WATER - 500 ML IVPB ONE (12:25)
[2019-03-27] MEDS ORDERED: VANCOMYCIN 500 MG VIAL (RESTRICTED TO ID ONLY) ONE (12:25)
[2019-03-27] MEDS ORDERED: ACETAMINOPHEN INJECTION 100 ML IVPB ONE (12:25)
[2019-03-27] MEDS ORDERED: VANCOMYCIN 1 GRAM (PRE-DOCKED) 1,000 MG/250 ML BAG IVPB ONE (12:25)
[2019-03-27] MEDS ORDERED: PIPERACILLIN/TAZOB 3.375 GM 3.375 GM/50 ML BAG IVPB ONE (12:26)
--- NOTE | 2019-03-27 12:26 | PDOC ---
History of Present Illness - General Chief Complaint: Lethargy Stated Complaint: SEPSIS Time Seen by Provider: 03/27/19 12:14 History Source: EMS, [facility] Records Exam Limitations: Clinical Condition - History of Present Illness Initial Comments: 73M PMH HTN COPD Dementia IDDM BIBEMS from [facility] due to sob and lethargy. Not able to obtain hx from patient 2/2 clinical condition. EMS unable to obtain further hx from the NH. Past History - Past Medical History Allergies/Adverse Reactions: Allergies Allergy/AdvReac Type Severity Reaction Status Date / Time No Known Allergies Allergy Verified 03/27/19 12:46 Home Medications: Ambulatory Orders Acetaminophen 650 mg PO ASDIR 03/27/19 Albuterol 2.5/Ipratropium 0.5 [Duoneb -] 1 neb IH QID 03/27/19 Albuterol Sulfate Inhaler - [Ventolin Hfa Inhaler -] 1 - 2 inh PO QID 03/27/19 Ascorbic Acid [Vitamin C] 500 mg PO DAILY 03/27/19 Atorvastatin Ca [Lipitor] 10 mg PO HS 03/27/19 Carbidopa/Levodopa 25/100 [Sinemet 25/100 -] 1 each PO TID 03/27/19 Divalproex *ER* [Depakote *ER* -] 1,000 mg PO HS 03/27/19 Divalproex *ER* [Depakote *ER* -] 250 mg PO HS 03/27/19 Furosemide [Lasix] 20 mg PO DAILY 03/27/19 Insulin Lispro [Humalog] 100 unit SQ ASDIR 03/27/19 Ipratropium 0.02% Nebulizer [Atrovent *Nebulizer*] 0.5 mg IH DAILY 03/27/19 Levothyroxine Sodium [Synthroid] 137 mcg PO DAILY 03/27/19 Metoprolol Succinate [Kapspargo Sprinkle] 25 mg PO DAILY 03/27/19 Mineral Oil/Hydrophil Petrolat [Aquaphor Healing Ointment] 50 gm TP ASDIR Olanzapine 20 mg PO HS 03/27/19 Pantoprazole Sodium 40 mg PO DAILY 03/27/19 Quetiapine Fumarate [Seroquel] 300 mg PO BID 03/27/19 Silver Sulfadiazine 1% Top Cr [Silvadene -] 1 applic TP BID 03/27/19 Vit A/Vitamin D3/E/Aloe V/Zinc [Periguard Ointment] 100 gm TP ASDIR 03/27/19 Zinc Sulfate [Orazinc] 220 mg PO DAILY 03/27/19 clonazePAM [Clonazepam] 2 mg PO BID 03/27/19 Anemia: Yes Cardiac Disorders: Yes (edema) COPD: Yes Diabetes: Yes GI Disorders: Yes (constipation) Disorders: Yes (frequents uti) HTN: Yes Hypercholesterolemia: Yes Psychiatric Problems: Yes (bi-polar, schitzoeffective disorder, insomnia, hallucination) Thyroid Disease: Yes (hypo) - Immunization History Immunization Up to Date: Yes - Psycho Social/Smoking Cessation Hx Smoking History: Unknown if ever smoked Hx Alcohol Use: No Drug/Substance Use Hx: No Review of Systems - Review of Systems Able to Perform ROS?: No Comments:: Unable to obtain 2/2 clinical condition. *Physical Exam - Physical Exam GEN: Lethargic, responsive to tactile stimuli HEENT: NC/AT, EOMI, PERRLA. No facial asymmetry. Moist mucous membranes. Normal voice. Supple neck w/ FROM. CV: S1/S2, RRR, no m/r/g LUNG: On 3L NC SaO2 90s. CTAB, no wheezes, crackles, rales, rhonchi. GI: soft, ndnt, +BS, no guarding, no rebound. EXTREMITIES: No LE edema. No obvious deformities of all extremities. SKIN: warm, dry, normal turgor. There are stage II decubs on the lower aspects of the right and left buttocks. PSYCH: Responsive to tactile stimuli. NEURO: Moving all extremities. ED Treatment Course - LABORATORY CBC & Chemistry Diagram: 03/29/19 06:11 03/29/19 06:11 Medical Decision Making - Critical Care Time Total Critical Care Time (minutes): 30 Critical Care Statement: The care of this patient involved high complexity decision making to prevent further life threatening deterioration of the patient 's condition and/or to evaluate & treat vital organ system(s) failure or risk of failure. - Medical Decision Making 03/27/19 12:32 73M COPD BIBEMS from [facility] for sob and lethargy. Limited Hx. DDx - COPD exacerbation, sepsis - eval infectious sources, ?CHF - CBC, CMP, Cardiac, BNP - ABG, VBG - BCX, UCX - EKG - Tylenol, empiric ABX - BiPaP - Admit 03/27/19 13:24 Pt is more responsive s/p BiPaP flu neg UA neg CBC reassuring ABG (pre-bipap) reviewed f/u rest of labs 03/27/19 13:34 EKG 03/27/19 HR 87 WI 118 QRS 104 QTc 430 Sinus rhythm Appears unchanged vs prior EKG in system Elevated troponin 0.17 03/27/19 14:10 BNP elevated Hypernatremic - Ur and Serum Osm - Lasix 40 ED team endorsed to Dr. Bergman // Admitted Discharge - Discharge Information Problems reviewed: Yes Clinical Impression/Diagnosis: COPD exacerbation - Follow up/Referral - Patient Discharge Instructions - Post Discharge Activity
[2019-03-27 12:46] LABS: ARTERIAL BLOOD GAS BASE EXCESS 5.2 meq/l (-2-2); ARTERIAL BLOOD GAS PCO2 58.3 mmHg (35-45); ARTERIAL BLOOD GAS PO2 121 mmHg (80-100); ARTERIAL BLOOD GAS pH 7.35 (7.35-7.45); CARBOXYHEMOGLOBIN 1.1 % (0-2)
[2019-03-27 12:49] LABS: PH,URINE 5.5 (5.0-8.0); URINE APPEARANCE CLEAR; URINE BILIRUBIN NEGATIVE (NEGATIVE); URINE COLOR YELLOW; URINE GLUCOSE (UA) NEGATIVE (NEGATIVE); URINE KETONE NEGATIVE (NEGATIVE); URINE LEUK ESTERASE NEGATIVE (NEGATIVE); URINE NITRITE NEGATIVE (NEGATIVE); URINE PROTEIN TRACE (NEGATIVE)
[2019-03-27 12:51] LABS: BASO % 0.7 % (0-2.0); EOS % 3.8 % (0-4.5); HEMOGLOBIN 11.4 GM/dL (11.7-16.9); MCH 31.8 pg (25.7-33.7); MCHC 31.7 g/dl (32.0-35.9); MEAN CELL VOLUME 100.3 fl (80-96); MONO % 10.6 % (3.8-10.2); NEUT % 61.9 % (42.8-82.8); PLATELET COUNT 146 K/MM3 (134-434); RBC 3.59 M/mm3 (4.00-5.60); RDW 14.7 % (11.9-15.9); WHITE BLOOD COUNT 9.4 K/mm3 (4.0-10.0)
[2019-03-27] MEDS ORDERED: SODIUM CHLORIDE 0.9% 500 ML INFUS.BAG IV ONE (12:55)
--- NOTE | 2019-03-27 13:15 | PDOC ---
Documentation entered by Otto Her SCRIBE, acting as scribe for Henrique Bustamante MD. Henrique Bustamante MD: This documentation has been prepared by the Arden altamirano Nirvannie, SCRIBE, under my direction and personally reviewed by me in its entirety. I confirm that the documentation accurately reflects all work, treatment, procedures, and medical decision making performed by me. Attending Attestation - Resident Resident Name: VillegasGeo - ED Attending Attestation I have performed the following: I have examined & evaluated the patient, The case was reviewed & discussed with the resident, I agree w/resident's findings & plan, Exceptions are as noted - HPI HPI: 03/27/19 12:53 CC: Respiratory Distress HPI: The patient is a 73 year old male, with a significant past medical history of Parkinson's, dementia, HTN, COPD, who presents to the emergency department with via EMS from [facility] with lethargy and shortness of breath. History is limited secondary to patients clinical condition. Allergies: NKDA Primary Care Physician: Dr. Brett Bergman - Physicial Exam PE: 03/27/19 15:24 Vitals: Triage Vital signs reviewed General Appearance: No acute distress, well nourished well developed, Head: Atraumatic, Cardiac: Regular rate and rhythym, no murmurs, no rubs, no gallops, Lungs: Clear to auscultation bilateral, good air movement bilaterally, Abdomen: Soft, non distended, normal bowel sounds, non tender to palpation Extremities: Full range of motion to all extremities, no cyanosis, clubbing, or edema Skin: Warm and dry, no rashes or lesions, no rash, no petechiae groove Left external shadow shadow needed Psych: Normal mood, normal affect - Medical Decision Making 03/27/19 15:25 73 years old with lethargy now improving on BiPAP history and examination based on laboratory analysis and chest x-ray is consistent with CHF exacerbation laboratory analysis also notable for hypernatremia Serum and urine osoms have been ordered patient will be admitted to medicine on telemetry for further management. 03/31/19 13:17
[2019-03-27 13:18] LABS: INR 1.07 (0.83-1.09); PROTHROMBIN TIME (PATIENT) 12.6 SEC (9.7-13.0)
[2019-03-27 13:20] LABS: ACTIVATED PTT 26.5 SECONDS (25.2-36.5)
[2019-03-27 13:31] LABS: ALBUMIN 2.3 g/dl (3.4-5.0); ANISOCYTOSIS 0; BILIRUBIN,TOTAL 0.4 mg/dL (0.2-1); BLOOD UREA NITROGEN 27.9 mg/dL (7-18); CALCIUM 8.6 mg/dL (8.5-10.1); CREATININE 1.2 mg/dL (0.55-1.3); MACROCYTOSIS 0; PLATELET ESTIMATE NORMAL; POTASSIUM 4.7 mmol/L (3.5-5.1); TOT PROT 6.3 g/dl (6.4-8.2)
[2019-03-27 13:48] LABS: N-TERMINAL BNP 1237.9 pg/ml (5-125)
[2019-03-27] MEDS ORDERED: FUROSEMIDE 40 MG/4 ML INJECTABLE VIAL IVPUSH ONE (14:10)
[2019-03-27] MEDS ORDERED: DEXTROSE 5%-WATER - 500 ML IV SCH (14:15)
[2019-03-27] MEDS ORDERED: FUROSEMIDE 40 MG/4 ML INJECTABLE VIAL ONE (14:44)
[2019-03-27 15:05] LABS: MAGNESIUM 2.7 mg/dL (1.8-2.4)
[2019-03-27] MEDS ORDERED: ACETAMINOPHEN 325 MG TABLET (FP) PO PRN (17:33)
--- NOTE | 2019-03-27 17:43 | HP ---
Admitting History and Physical - Primary Care Physician PCP: Sharon Bergman - Admission History of Present Illness: The patient is a 73 year old male, with a significant past medical history of Parkinson's, dementia, HTN, COPD, schizophrenia, bipolar who presents to the emergency department with via EMS from [facility] with lethargy and shortness of breath. pt found in chf exac as well as cpod given iv lasix Placed on Bipap Also received vano and zosyn as has fever- cultures send. admitted to tele Case d/w er physician Chart reviewed Ekg- ok +ve troponins Elevated bnp Pt has been [facility] in jail for Acute renal insufficiency. Pt seen/ examined in tele On bipap Drowsy but arousable. Pt is poor historian All h/o from records On BIPAP [facility] records reviewed- On multiple psych meds History Source: Medical Record Limitations to Obtaining History: Clinical Condition - Smoking History Smoking history: Unknown if ever smoked Have you smoked in the past 12 months: No - Alcohol/Substance Use Hx Alcohol Use: No Home Medications - Allergies Allergies/Adverse Reactions: Allergies Allergy/AdvReac Type Severity Reaction Status Date / Time No Known Allergies Allergy Verified 03/27/19 12:46 - Home Medications Home Medications: Ambulatory Orders Acetaminophen 650 mg PO ASDIR 03/27/19 Albuterol 2.5/Ipratropium 0.5 [Duoneb -] 1 neb IH QID 03/27/19 Albuterol Sulfate Inhaler - [Ventolin Hfa Inhaler -] 1 - 2 inh PO QID 03/27/19 Ascorbic Acid [Vitamin C] 500 mg PO DAILY 03/27/19 Atorvastatin Ca [Lipitor] 10 mg PO HS 03/27/19 Carbidopa/Levodopa 25/100 [Sinemet 25/100 -] 1 each PO TID 03/27/19 Divalproex *ER* [Depakote *ER* -] 1,000 mg PO DAILY 03/27/19 Furosemide [Lasix] 20 mg PO DAILY 03/27/19 Insulin Lispro [Humalog] 100 unit SQ ASDIR 03/27/19 Ipratropium 0.02% Nebulizer [Atrovent *Nebulizer*] 0.5 mg IH DAILY 03/27/19 Levothyroxine Sodium [Synthroid] 137 mcg PO DAILY 03/27/19 Metoprolol Succinate [Kapspargo Sprinkle] 25 mg PO DAILY 03/27/19 Mineral Oil/Hydrophil [place] [Aquaphor Healing Ointment] 50 gm TP ASDIR Olanzapine 20 mg PO HS 03/27/19 Pantoprazole Sodium 40 mg PO DAILY 03/27/19 Quetiapine Fumarate [Seroquel] 300 mg PO BID 03/27/19 Silver Sulfadiazine 1% Top Cr [Silvadene -] 1 applic TP BID 03/27/19 Vit A/Vitamin D3/E/Aloe V/Zinc [Periguard Ointment] 100 gm TP ASDIR 03/27/19 Zinc Sulfate [Orazinc] 220 mg PO DAILY 03/27/19 clonazePAM [Clonazepam] 2 mg PO BID 03/27/19 Review of Systems Unable to obtain ROS, reason: clinical condition Physical Examination Vital Signs: Vital Signs Temperature 100.1 F H 03/27/19 12:14 Pulse Rate 80 03/27/19 16:16 Respiratory Rate 20 03/27/19 16:16 Blood Pressure 119/70 03/27/19 16:16 O2 Sat by Pulse Oximetry (%) 99 03/27/19 16:16 Constitutional: Yes: No Distress Eyes: Yes: Conjunctiva Clear Neck: Yes: Supple Cardiovascular: Yes: Regular Rate and Rhythm Respiratory: Yes: Rhonchi (bilateral rhonchi) Gastrointestinal: Yes: Soft, Abdomen, Obese Edema: LLE: 1+, RLE: 1+ Neurological: Yes: Lethargy. No: Alert Psychiatric: No: Alert Labs: CBC, BMP 03/27/19 12:25 03/27/19 12:25 Imaging - Results Chest X-ray: Report Reviewed EKG: Report Reviewed Problem List - Problems (1) CHF exacerbation Code(s): I50.9 - HEART FAILURE, UNSPECIFIED (2) Schizophrenia Code(s): F20.9 - SCHIZOPHRENIA, UNSPECIFIED (3) Acute exacerbation of chronic obstructive pulmonary disease (COPD) Code(s): J44.1 - CHRONIC OBSTRUCTIVE PULMONARY DISEASE W (ACUTE) EXACERBATION (4) Dementia Code(s): F03.90 - UNSPECIFIED DEMENTIA WITHOUT BEHAVIORAL DISTURBANCE (5) Lethargy Code(s): R53.83 - OTHER FATIGUE (6) Parkinson's disease Code(s): G20 - PARKINSON'S DISEASE (7) Peripheral edema Code(s): R60.9 - EDEMA, UNSPECIFIED (8) Fever Code(s): R50.9 - FEVER, UNSPECIFIED Assessment/Plan Admit to tele i/v lasix BIPAP start on steroids daily weigh echo Hold psych nmeds for now will consult psych also for adjustment of meds I/D , pulmonary and cardiology consults condition guarded will follow
[2019-03-27] MEDS: methylPREDNISolone NA SUCC 40 MG/1 ML VIAL IVPUSH SCH ×2 (18:24→21:59)
[2019-03-27] MEDS: ALBUTEROL SO4 2.5/IPRATROPIUM 0.5 INH SOL 3 ML VIAL.NEB. NEB SCH (20:47)
[2019-03-27 21:02] VITALS: BMI 34.0
--- NOTE | 2019-03-27 21:23 | PN ---
Progress Note (short form) - Note Progress Note: ID CONSULT DICTATED R/O NH ACQUIRED PNEUMONIA COPD ?CHF HYPERNATREMIA OBS AWAIT C/S EMPIRIC ZOSYN
[2019-03-27] MEDS: SILVER SULFADIAZINE 1% TOP CREAM 50 GM JAR TP SCH (21:59)
[2019-03-27] MEDS: CARVEDILOL 3.125 MG TABLET (FP) PO SCH (21:59)
[2019-03-27] MEDS: ATORVASTATIN CA 10 MG TABLET (FP) PO SCH (21:59)
[2019-03-27] MEDS: CARBIDOPA/LEVODOPA 25/100 TABLET (FP) PO SCH (21:59)
[2019-03-27] MEDS: HEPARIN NA (PORCINE) 5,000 UNITS/ML 1ML VIAL SQ SCH (21:59)
[2019-03-28] MEDS ORDERED: PIPERACILLIN/TAZOBACTAM 3.375 GM VIAL IVPB ONE ×3 (02:28→17:02)
[2019-03-28] MEDS ORDERED: DEXTROSE 5%-WATER - 50 ML IVPB ONE ×3 (02:28→17:02)
[2019-03-28] MEDS: PIPERACILLIN/TAZOB 3.375 GM 3.375 GM in DEXTROSE 5%-WATER - 50 ML IVPB SCH ×3 (02:40→17:12)
[2019-03-28] MEDS: methylPREDNISolone NA SUCC 40 MG/1 ML VIAL IVPUSH SCH ×4 (02:40→22:24)
[2019-03-28] MEDS ORDERED: LEVOTHYROXINE NA 112 MCG TABLET (FP) ONE (06:30)
[2019-03-28] MEDS ORDERED: LEVOTHYROXINE NA 25 MCG TABLET (FP) ONE (06:30)
[2019-03-28] MEDS: LEVOTHYROXINE 112 MCG, LEVOTHYROXINE 25 MCG PO SCH (06:48)
[2019-03-28] MEDS: INSULIN SLIDING SCALE (NOVOLOG) 1 VIAL SQ SCH ×3 (06:48→16:54)
[2019-03-28] MEDS: CARBIDOPA/LEVODOPA 25/100 TABLET (FP) PO SCH ×3 (06:48→22:25)
[2019-03-28 07:03] LABS: BASO % 0.2 % (0-2.0); HEMATOCRIT 39.6 % (35.4-49); HEMOGLOBIN 12.9 GM/dL (11.7-16.9); LYMPH % 9.5 % (8-40); MCH 31.8 pg (25.7-33.7); MCHC 32.5 g/dl (32.0-35.9); MEAN CELL VOLUME 97.7 fl (80-96); MEAN PLT VOLUME 9.3 fl (7.5-11.1); MONO % 1.6 % (3.8-10.2); NEUT % 88.7 % (42.8-82.8); PLATELET COUNT 178 K/MM3 (134-434); RBC 4.06 M/mm3 (4.00-5.60); RDW 13.8 % (11.9-15.9); WHITE BLOOD COUNT 10.4 K/mm3 (4.0-10.0)
[2019-03-28 07:42] LABS: ALBUMIN 2.9 g/dl (3.4-5.0); BILIRUBIN,TOTAL 0.6 mg/dL (0.2-1); BLOOD UREA NITROGEN 29.2 mg/dL (7-18); CALCIUM 9.5 mg/dL (8.5-10.1); CREATININE 1.3 mg/dL (0.55-1.3); MAGNESIUM 2.8 mg/dL (1.8-2.4); POTASSIUM 4.1 mmol/L (3.5-5.1); TOT PROT 7.9 g/dl (6.4-8.2)
[2019-03-28] MEDS: ALBUTEROL SO4 2.5/IPRATROPIUM 0.5 INH SOL 3 ML VIAL.NEB. NEB SCH ×4 (07:42→20:50)
[2019-03-28] MEDS: PANTOPRAZOLE 40 MG TABLET (FP) PO SCH (09:41)
[2019-03-28] MEDS: HEPARIN NA (PORCINE) 5,000 UNITS/ML 1ML VIAL SQ SCH ×2 (09:41→22:24)
[2019-03-28] MEDS: ZINC SULFATE 220 MG CAPSULE (FP) PO SCH (09:41)
[2019-03-28] MEDS: DIVALPROEX NA *ER* EXTEND REL 500 MG TABLET.SA (FP) PO SCH (09:42)
[2019-03-28] MEDS: CARVEDILOL 3.125 MG TABLET (FP) PO SCH ×2 (09:42→22:25)
[2019-03-28] MEDS: SILVER SULFADIAZINE 1% TOP CREAM 50 GM JAR TP SCH ×2 (09:43→22:26)
--- NOTE | 2019-03-28 09:43 | CON.CARD ---
Consult Consult Specialty:: Cardiology Referred by:: Dr. Bergman Reason for Consultation:: CHF - History of Present Illness Chief Complaint: Lethargy and SOB History of Present Illness: The patient is a 73 year old male, with a significant past medical history of Parkinson's, dementia, HTN, COPD, schizophrenia, bipolar who presents to the emergency department with via EMS from [facility] with lethargy and shortness of breath. Patient has been receiving IVF in shelter for renal insuffiency. History is limited by his dementia. He denies CP or SOB at this time. 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: No: Alzheimer's, CVA, Dementia, Migraine, Multiple Sclerosis, Peripheral Neuropathy, Parkinson's, Seizure, Syncope, TIA, Vertigo, Other Cardio/Vascular: No: AFIB, Aneurysm, Aortic Insufficiency, Aortic Stenosis, CAD , CHF, Deep Vein Thrombosis, HTN, Hyperlipdemia, MA, Mitral Insufficiency, Mitral Stenosis, Murmur, Pulmonary Hypertension, Other Pulmonary: No: Asthma, Bronchitis, Cancer, COPD, O2 Dependent, Pneumonia, Previously Intubated, Pulmonary Embolus, Pulmonary Fibrosis, Sleep Apnea, Other Gastrointestinal: No: Ascites, Cancer, Constipation, Crohn's Disease, Diverticulitis, Diverticulosis, Esophageal Varices, Gastritis, GERD, GI Bleed, Hemorrhoids, Hiatal Hernia, Inflamatory Bowel Disease, Irritable Bowel Disease, Pancreatitis, Peptic Ulcer Disease, Ulcerative Colitis, Other Hepatobiliary: No: Cirrhosis, Cholelithiasis, Cholecystitis, Choledocholithiasis , Hepatitis A, Hepatitis B, Hepatitis C, Other Renal/: No: Renal Failure, Renal Inusuff, BPH, Cancer, Hematuria, Hemodialysis , Neurogenic Bladder, Renal Calculi, UTI, Other Heme/Onc: No: Anemia, B12 Deficiency, Bleeding Disorder, Cancer, Current Chemotherapy, Current Radiation Therapy, Hemochromatosis, Hypercoaguable State, Myeloproliferative Synd, Sickle Cell Disease, Sickle Cell Trait, Thrombocytopenia, Other Infectious Disease: No: AIDS, C-Diff, Herpes Zoster, HIV, MRSA, STD's, Tuberculosis, VREF, Other Psych: No: Addictions, Anxiety, Bipolar, Depression, Panic, Psychosis, Schizophrenia, Other Musculoskeletal: No: Bursitis, Chronic low back pain, Hemiparesis, Hemiplegia, Osteoarthritis, Paraplegia, Other Rheumatology: No: Fibromyalgia, Gout, Lupus, Rheumatoid Arthritis, Sarcoidosis, Vasculitis, Other Endocrine: Yes: Diabetes Mellitus - Alcohol/Substance Use Hx Alcohol Use: No - Smoking History Smoking history: Unknown if ever smoked Have you smoked in the past 12 months: No - Social History Usual Living Arrangement: Custodial History of Recent Travel: No Home Medications - Allergies Allergies/Adverse Reactions: Allergies Allergy/AdvReac Type Severity Reaction Status Date / Time No Known Allergies Allergy Verified 03/27/19 12:46 - Home Medications Home Medications: Ambulatory Orders Acetaminophen 650 mg PO ASDIR 03/27/19 Albuterol 2.5/Ipratropium 0.5 [Duoneb -] 1 neb IH QID 03/27/19 Albuterol Sulfate Inhaler - [Ventolin Hfa Inhaler -] 1 - 2 inh PO QID 03/27/19 Ascorbic Acid [Vitamin C] 500 mg PO DAILY 03/27/19 Atorvastatin Ca [Lipitor] 10 mg PO HS 03/27/19 Carbidopa/Levodopa 25/100 [Sinemet 25/100 -] 1 each PO TID 03/27/19 Divalproex *ER* [Depakote *ER* -] 1,000 mg PO HS 03/27/19 Divalproex *ER* [Depakote *ER* -] 250 mg PO HS 03/27/19 Furosemide [Lasix] 20 mg PO DAILY 03/27/19 Insulin Lispro [Humalog] 100 unit SQ ASDIR 03/27/19 Ipratropium 0.02% Nebulizer [Atrovent *Nebulizer*] 0.5 mg IH DAILY 03/27/19 Levothyroxine Sodium [Synthroid] 137 mcg PO DAILY 03/27/19 Metoprolol Succinate [Kapspargo Sprinkle] 25 mg PO DAILY 03/27/19 Mineral Oil/Hydrophil Petrolat [Aquaphor Healing Ointment] 50 gm TP ASDIR Olanzapine 20 mg PO HS 03/27/19 Pantoprazole Sodium 40 mg PO DAILY 03/27/19 Quetiapine Fumarate [Seroquel] 300 mg PO BID 03/27/19 Silver Sulfadiazine 1% Top Cr [Silvadene -] 1 applic TP BID 03/27/19 Vit A/Vitamin D3/E/Aloe V/Zinc [Periguard Ointment] 100 gm TP ASDIR 03/27/19 Zinc Sulfate [Orazinc] 220 mg PO DAILY 03/27/19 clonazePAM [Clonazepam] 2 mg PO BID 03/27/19 Family Medical History Family History: Unremarkable (non contributory) Review of Systems Findings/Remarks: see HPI - Review of Systems Constitutional: reports: No Symptoms Eyes: reports: No Symptoms HENT: reports: No Symptoms Neck: reports: No Symptoms Cardiovascular: reports: Shortness of Breath Respiratory: reports: No Symptoms Gastrointestinal: reports: No Symptoms Genitourinary: reports: No Symptoms Breasts: reports: No Symptoms Reported Musculoskeletal: reports: No Symptoms Neurological: reports: No Symptoms Endocrine: reports: No Symptoms Hematology/Lymphatic: reports: No Symptoms Psychiatric: reports: No Symptoms - Risk Factors Known Risk Factors: Yes: Diabetes Mellitus Vital Signs: Vital Signs Temperature 97.9 F 03/28/19 06:00 Pulse Rate 76 03/28/19 06:00 Respiratory Rate 20 03/28/19 06:00 Blood Pressure 146/82 03/28/19 06:00 O2 Sat by Pulse Oximetry (%) 96 03/28/19 07:41 Constitutional: Yes: Calm Respiratory: Yes: Rhonchi Cardiovascular: Yes: Regular Rate and Rhythm JVD: No Heart Sounds: Yes: S1, S2 Murmur: Yes: Systolic Murmur (loud systolic murmur RSB) Edema: Yes Edema: LLE: 1+, RLE: 1+ - Other Data Labs, Other Data: CBC, BMP 03/28/19 06:30 03/28/19 06:30 INR, PTT INR 1.07 (0.83-1.09) 03/27/19 12:25 Troponin, BNP 03/27/19 03/27/19 03/27/19 12:25 12:25 16:50 Troponin I 0.17 H 0.13 H B-Natriuretic Peptide 1237.9 H 03/28/19 06:30 Troponin I 0.09 H B-Natriuretic Peptide Troponin, BNP 03/27/19 03/27/19 03/27/19 12:25 12:25 16:50 Troponin I 0.17 H 0.13 H B-Natriuretic Peptide 1237.9 H 03/28/19 06:30 Troponin I 0.09 H B-Natriuretic Peptide Microbiology 03/27/19 12:20 Urine - Urine - Catheterized Urine Culture - Final NO GROWTH OBTAINED Laboratory Tests 03/27/19 03/27/19 03/27/19 12:20 12:25 16:50 WBC RBC Plt Count Sodium Potassium Creatinine Troponin I 0.13 H B-Natriuretic Peptide 1237.9 H Influenza A (Rapid) Negative Influenza B (Rapid) Negative 03/28/19 03/28/19 06:30 06:30 WBC 10.4 H RBC 4.06 Plt Count 178 D Sodium 155 H Potassium 4.1 Creatinine 1.3 Troponin I 0.09 H B-Natriuretic Peptide Influenza A (Rapid) Influenza B (Rapid) NSR 87bpm, poor R wave Echo: Pending Imaging - Results Chest X-ray: Image Reviewed MRI: Image Reviewed Assessment/Plan 73 year old male, with a significant past medical history of Parkinson's, dementia, HTN, COPD, schizophrenia, bipolar who presents to the emergency department with via EMS from [facility] with lethargy and shortness of breath. Patient has been receiving IVF in shelter for renal insuffiency. IMP: Murmur Lethargy of unclear etiology Hypernatremia Parkinson's disease Dementia Psych disorder REC: 1. Hypernatremia suggests free water deficit. Would hold Lasix and suggest renal consult. 2. Echo to assess EF, murmur. 3. Do not suspect borderline TnI represents ACS. Flat, nonischemic ECG. May be borderline elevated in setting of chronic valvular heart dz (murmur), suspect the BNP is from same. 4. Cont tele Will follow Please call as /if needed.
[2019-03-28] MEDS ORDERED: FUROSEMIDE 40 MG/4 ML INJECTABLE VIAL IVPUSH SCH (10:00)
[2019-03-28] MEDS ORDERED: PATIENT'S OWN MEDICATION (NON-FORMULARY) (Levothyroxine Sodium [Synthroid] 137 MCG) PO SCH (10:00)
--- NOTE | 2019-03-28 11:17 | PN ---
Progress Note (short form) - Note Progress Note: Pt seen/ examined more alert/ awake pulls out iv/ gets aggressive Cardio/ i/d consult noted Vital Signs Temp 97.9 F 03/28/19 06:00 Pulse 76 03/28/19 06:00 Resp 20 03/28/19 06:00 BP 146/82 03/28/19 06:00 Pulse Ox 96 03/28/19 07:41 Intake & Output 03/27/19 03/27/19 03/28/19 11:59 23:59 11:59 Weight 211 lb 3.2 oz 208 lb 12.8 oz Other: Voiding Method Incontinent Height 5 ft 6 in Body Mass Index (BMI) 34.0 Weight Measurement Method Stated by Caregiver Patient Lift Scale Active Medications Acetaminophen (Tylenol -) 650 mg PO Q6H PRN PRN Reason: PAIN LEVEL 1-5 Albuterol/Ipratropium (Duoneb -) 1 amp NEB RQID [facility] Last Admin: 03/28/19 07:42 Dose: 1 amp Atorvastatin Calcium (Lipitor -) 10 mg PO HS [facility] Last Admin: 03/27/19 21:59 Dose: 10 mg Carbidopa/Levodopa (Sinemet 25/100 -) 1 each PO TID [facility] Last Admin: 03/28/19 06:48 Dose: 1 each Carvedilol (Coreg -) 3.125 mg PO BID [facility] Last Admin: 03/28/19 09:42 Dose: 3.125 mg Clonazepam (Klonopin -) 1 mg PO BID [facility] Divalproex Sodium (Depakote *Er* -) 1,000 mg PO DAILY [facility] Last Admin: 03/28/19 09:42 Dose: 1,000 mg Heparin Sodium (Porcine) (Heparin -) 5,000 unit SQ BID [facility] Last Admin: 03/28/19 09:41 Dose: 5,000 unit Piperacillin Sod/Tazobactam (Sod 3.375 gm/ Dextrose) 50 mls @ 100 mls/hr IVPB Q8H-IV [facility]; Protocol Last Admin: 03/28/19 09:42 Dose: 100 mls/hr Insulin Aspart (Novolog Vial Sliding Scale -) 1 vial SQ TIDAC [facility]; Protocol Last Admin: 03/28/19 06:48 Dose: 3 units Levothyroxine Sodium 112 mcg/ (Levothyroxine Sodium 25 mcg) 137 mcg PO DAILY@ 0700 [facility] Last Admin: 03/28/19 06:48 Dose: 137 mcg Methylprednisolone Sodium Succinate (Solu-Medrol -) 40 mg IVPUSH Q6H-IV [facility] Last Admin: 03/28/19 09:41 Dose: 40 mg Non-Formulary Medication (Olanzapine [Olanzapine]) 20 mg PO HS [facility] Pantoprazole Sodium (Protonix -) 40 mg PO DAILY [facility] Last Admin: 03/28/19 09:41 Dose: 40 mg Quetiapine Fumarate (Seroquel -) 100 mg PO BID [facility] Silver Sulfadiazine (Silvadene -) 1 applic TP BID [facility] Last Admin: 03/28/19 09:43 Dose: 1 applic Zinc Sulfate (Orazinc -) 220 mg PO DAILY [facility] Last Admin: 03/28/19 09:41 Dose: 220 mg CBC, BMP 03/28/19 06:30 03/28/19 06:30 Abnormal Lab Results 03/27/19 03/27/19 03/27/19 12:25 12:25 12:25 WBC RBC 3.59 L Hgb 11.4 L MCV 100.3 H MCHC 31.7 L Absolute Neuts (auto) Neutrophils % Monocytes % 10.6 H Eosinophils % (Manual) 6.0 H D Myelocytes % (Man) 3 H D ABG pCO2 at Pt Temp ABG pO2 at Pt Temp ABG HCO3 ABG Base Excess Sodium 159 H Chloride 127 H Carbon Dioxide 33 H Anion Gap -1 L BUN 27.9 H Random Glucose Hemoglobin A1c % Magnesium 2.7 H AST 81 H ALT 10 L Troponin I 0.17 H B-Natriuretic Peptide 1237.9 H Total Protein 6.3 L Albumin 2.3 L Triglycerides HDL Cholesterol 03/27/19 03/27/19 03/28/19 12:30 16:50 06:30 WBC 10.4 H RBC Hgb MCV 97.7 H MCHC Absolute Neuts (auto) 9.2 H Neutrophils % 88.7 H D Monocytes % 1.6 L D Eosinophils % (Manual) Myelocytes % (Man) ABG pCO2 at Pt Temp 58.3 H ABG pO2 at Pt Temp 121 H ABG HCO3 31.5 H ABG Base Excess 5.2 H Sodium Chloride Carbon Dioxide Anion Gap BUN Random Glucose Hemoglobin A1c % Magnesium AST ALT Troponin I 0.13 H B-Natriuretic Peptide Total Protein Albumin Triglycerides HDL Cholesterol 03/28/19 03/28/19 06:30 06:30 WBC RBC Hgb MCV MCHC Absolute Neuts (auto) Neutrophils % Monocytes % Eosinophils % (Manual) Myelocytes % (Man) ABG pCO2 at Pt Temp ABG pO2 at Pt Temp ABG HCO3 ABG Base Excess Sodium 155 H Chloride 117 H Carbon Dioxide 36 H Anion Gap 2 L BUN 29.2 H Random Glucose 167 H Hemoglobin A1c % 6.4 H Magnesium 2.8 H AST 82 H ALT Troponin I 0.09 H B-Natriuretic Peptide Total Protein Albumin 2.9 L Triglycerides 252 H HDL Cholesterol 31 L Microbiology 03/27/19 12:25 Gram Stain - Final Buttock - Right Wound Culture - Preliminary Group D Strep Or Entero Coccus 03/27/19 12:20 Urine Culture - Final Urine - Urine - Catheterized NO GROWTH OBTAINED Physical Examination Constitutional: Yes: No Distress. more awake Eyes: Yes: Conjunctiva Clear Neck: Yes: Supple Cardiovascular: Yes: Regular Rate and Rhythm Respiratory: Yes: Rhonchi (bilateral rhonchi)- improved Gastrointestinal: Yes: Soft, Abdomen, Obese Edema: LLE: 1+, RLE: 1+ Neurological: Yes: : Alert Psychiatric: No: Alert Imaging - Results Chest X-ray: Report Reviewed EKG: Report Reviewed Problem List - Problems (1) CHF exacerbation Code(s): I50.9 - HEART FAILURE, UNSPECIFIED (2) Schizophrenia Code(s): F20.9 - SCHIZOPHRENIA, UNSPECIFIED (3) Acute exacerbation of chronic obstructive pulmonary disease (COPD) Code(s): J44.1 - CHRONIC OBSTRUCTIVE PULMONARY DISEASE W (ACUTE) EXACERBATION (4) Dementia Code(s): F03.90 - UNSPECIFIED DEMENTIA WITHOUT BEHAVIORAL DISTURBANCE (5) Lethargy Code(s): R53.83 - OTHER FATIGUE (6) Parkinson's disease Code(s): G20 - PARKINSON'S DISEASE (7) Peripheral edema Code(s): R60.9 - EDEMA, UNSPECIFIED (8) Fever Code(s): R50.9 - FEVER, UNSPECIFIED Assessment/Plan Admit to tele i/v lasix-- will hold per cardio BIPAP started on steroids daily weigh echo Restart psych meds -- lower doses and monitor monitor labs [place] for safety d/w Rn also will follow Problem List - Problems (1) CHF exacerbation Code(s): I50.9 - HEART FAILURE, UNSPECIFIED (2) Schizophrenia Code(s): F20.9 - SCHIZOPHRENIA, UNSPECIFIED (3) Acute exacerbation of chronic obstructive pulmonary disease (COPD) Code(s): J44.1 - CHRONIC OBSTRUCTIVE PULMONARY DISEASE W (ACUTE) EXACERBATION (4) Dementia Code(s): F03.90 - UNSPECIFIED DEMENTIA WITHOUT BEHAVIORAL DISTURBANCE (5) Lethargy Code(s): R53.83 - OTHER FATIGUE (6) Parkinson's disease Code(s): G20 - PARKINSON'S DISEASE (7) Peripheral edema Code(s): R60.9 - EDEMA, UNSPECIFIED (8) Fever Code(s): R50.9 - FEVER, UNSPECIFIED
--- NOTE | 2019-03-28 12:39 | PN ---
Progress Note (short form) - Note Progress Note: PULMONARY CONSULTATION DICTATED 03/28/19 IMP ACUTE HYPOXEMIC/HYPERCAPNEIC RESPIRATORY FAILURE COPD WITH ACUTE EXACERBATION LETHARGY HTN PARKINSONS SCHIZOPHRENIA + TROPONIN HYPERNATREMIA NOVA PLAN MEDROL INHALED BRONCHODILATORS F/U ABG NIPPV NEEDED MONITOR LYTES,RENAL FUNCTION,NA LEVEL TREND TROPONINS IVF DR ALVAREZ Problem List - Problems (1) Schizophrenia Code(s): F20.9 - SCHIZOPHRENIA, UNSPECIFIED (2) Acute exacerbation of chronic obstructive pulmonary disease (COPD) Code(s): J44.1 - CHRONIC OBSTRUCTIVE PULMONARY DISEASE W (ACUTE) EXACERBATION (3) Dementia Code(s): F03.90 - UNSPECIFIED DEMENTIA WITHOUT BEHAVIORAL DISTURBANCE (4) HTN (hypertension) Code(s): I10 - ESSENTIAL (PRIMARY) HYPERTENSION (5) Lethargy Code(s): R53.83 - OTHER FATIGUE (6) Parkinson's disease Code(s): G20 - PARKINSON'S DISEASE (7) Acute respiratory failure with hypoxia and hypercapnia Code(s): J96.01 - ACUTE RESPIRATORY FAILURE WITH HYPOXIA; J96.02 - ACUTE RESPIRATORY FAILURE WITH HYPERCAPNIA (8) Hypernatremia Code(s): E87.0 - HYPEROSMOLALITY AND HYPERNATREMIA
[2019-03-28] MEDS: clonazePAM 2 MG TABLET PO SCH ×2 (12:49→22:26)
--- NOTE | 2019-03-28 14:11 | EKG ---
Test Reason : Blood Pressure : / mmHG Vent. Rate : 087 BPM Atrial Rate : 087 BPM P-R Int : 118 ms QRS Dur : 104 ms QT Int : 358 ms P-R-T Axes : 050 -27 030 degrees QTc Int : 430 ms POOR DATA QUALITY, INTERPRETATION MAY BE ADVERSELY AFFECTED SINUS RHYTHM WITH PREMATURE ATRIAL COMPLEXES NON-SPECIFIC INTRA-VENTRICULAR CONDUCTION DELAY WHEN COMPARED WITH ECG OF 18-MAY-2017 16:31, PREMATURE ATRIAL COMPLEXES ARE NOW PRESENT Confirmed by MARTI WRIGHT MD ([id number]) on 03/28/2019 2:10:40 PM Referred By: Confirmed By:MARTI WRIGHT MD
[2019-03-28] MEDS ORDERED: PT OWN MED DRAWER 7, Y5N ONE (14:16)
--- NOTE | 2019-03-28 18:56 | CONS ---
PULMONARY CONSULTATION DATE OF CONSULTATION: 03/28/2019 REFERRING PHYSICIAN: Sharon Bergman MD HISTORY: History was obtained from medical records as patient is a poor historian. Patient is a 73-year-old male resident of [facility] with a past medical history of COPD, dementia, schizophrenia, Parkinson disease, bipolar as well as hypertension. Admitted to [facility] secondary to increasing shortness of breath and lethargy. Patient apparently has been receiving IV fluids in the long term for renal insufficiency. In the emergency room, he was noted to have an elevated sodium level of 155 as well as noted to be hypercapnic on blood gas with a PCO2 of 58. He was admitted. He was started on IV fluids and steroids and transferred up to medical floor for further management. No further history is available at this time. PAST MEDICAL HISTORY: Again, includes COPD, schizophrenia, bipolar, dementia, Parkinson, hypertension. REVIEW OF SYSTEMS: Unable to obtain. Patient is a poor historian. CURRENT MEDICATIONS: Include Solu-Medrol 40 every 6, Tylenol, Zosyn, heparin subcutaneous, Depakote, Zyprexa, Seroquel, Klonopin, DuoNeb, Coreg, Sinemet, Lipitor, NovoLog, Silvadene, Protonix. PHYSICAL EXAMINATION: General: The patient is a well-developed, well-nourished male awake, alert, confused in no acute distress. Vital Signs: He is afebrile. Blood pressure 146/82, respiratory rate is 20, O2 saturation is 96% on 2 L nasal cannula. HEENT: Normocephalic, atraumatic. Neck: Supple. Heart: Regular with S1, S2. Chest: Diminished breath sounds bilaterally. Abdomen: Soft. Bowel sounds positive. Extremities: No cyanosis or edema. LABORATORIES: Blood gas 7.35, PCO2 of 58, PO2 of 121, bicarbonate of 31, saturation of 98 that is on unknown quantity of oxygen. WBC 10.4, hemoglobin 12.9, hematocrit 39.6 with a platelet count of 178,000. INR was 1.07. Chemistries; BUN 29, creatinine 1.3. Troponin 0.09, initially was 0.13. Chest x-ray: No acute infiltrates or effusions. IMPRESSION: 1. Acute hypoxic, hypercapnic respiratory failure likely secondary to chronic obstructive pulmonary disease with acute exacerbation. 2. Likely toxic metabolic encephalopathy secondary to hypercapnia, hypernatremia. 3. Hypertension. 4. Parkinson. 5. Schizophrenia. 6. Positive troponins. 7. Hypernatremia. PLAN: Solu-Medrol. Inhaled bronchodilators. Follow up ABGs. NIPPV as needed. Monitor electrolytes, renal function as well as sodium level. Trend troponins. IV fluids. MONE ALVAREZ M.D. [id number] MTDD
[2019-03-28] MEDS: ATORVASTATIN CA 10 MG TABLET (FP) PO SCH (22:25)
[2019-03-28] MEDS: QUEtiapine FUMARATE 100 MG TABLET (FP) PO SCH (22:25)
[2019-03-28] MEDS: OLANZapine 10 MG TABLET PO SCH (22:25)
[2019-03-29] MEDS ORDERED: PIPERACILLIN/TAZOBACTAM 3.375 GM VIAL IVPB ONE ×3 (02:54→17:19)
[2019-03-29] MEDS ORDERED: DEXTROSE 5%-WATER - 50 ML IVPB ONE ×3 (02:55→17:19)
[2019-03-29] MEDS: PIPERACILLIN/TAZOB 3.375 GM 3.375 GM in DEXTROSE 5%-WATER - 50 ML IVPB SCH ×3 (02:58→17:22)
[2019-03-29] MEDS: methylPREDNISolone NA SUCC 40 MG/1 ML VIAL IVPUSH SCH ×4 (02:59→23:18)
[2019-03-29] MEDS ORDERED: LEVOTHYROXINE NA 25 MCG TABLET (FP) ONE (05:28)
[2019-03-29] MEDS ORDERED: LEVOTHYROXINE NA 112 MCG TABLET (FP) ONE (05:28)
[2019-03-29] MEDS: CARBIDOPA/LEVODOPA 25/100 TABLET (FP) PO SCH ×3 (06:10→21:40)
[2019-03-29] MEDS: LEVOTHYROXINE 112 MCG, LEVOTHYROXINE 25 MCG PO SCH (06:10)
[2019-03-29] MEDS: INSULIN SLIDING SCALE (NOVOLOG) 1 VIAL SQ SCH ×3 (06:11→16:29)
[2019-03-29 07:02] LABS: BASO % 0.1 % (0-2.0); HEMATOCRIT 35.8 % (35.4-49); HEMOGLOBIN 11.7 GM/dL (11.7-16.9); LYMPH % 8.2 % (8-40); MCH 31.9 pg (25.7-33.7); MCHC 32.8 g/dl (32.0-35.9); MEAN CELL VOLUME 97.3 fl (80-96); MEAN PLT VOLUME 9.9 fl (7.5-11.1); MONO % 2.8 % (3.8-10.2); NEUT % 88.9 % (42.8-82.8); PLATELET COUNT 175 K/MM3 (134-434); RBC 3.68 M/mm3 (4.00-5.60); RDW 13.5 % (11.9-15.9); WHITE BLOOD COUNT 13.9 K/mm3 (4.0-10.0)
[2019-03-29 07:38] LABS: ALBUMIN 2.7 g/dl (3.4-5.0); BILIRUBIN,TOTAL 0.3 mg/dL (0.2-1); BLOOD UREA NITROGEN 37.2 mg/dL (7-18); CALCIUM 9.6 mg/dL (8.5-10.1); CREATININE 1.4 mg/dL (0.55-1.3); POTASSIUM 4.4 mmol/L (3.5-5.1); TOT PROT 6.9 g/dl (6.4-8.2)
[2019-03-29] MEDS: ALBUTEROL SO4 2.5/IPRATROPIUM 0.5 INH SOL 3 ML VIAL.NEB. NEB SCH ×4 (08:20→20:35)
[2019-03-29] MEDS: PANTOPRAZOLE 40 MG TABLET (FP) PO SCH (09:18)
[2019-03-29] MEDS: ZINC SULFATE 220 MG CAPSULE (FP) PO SCH (09:18)
[2019-03-29] MEDS: CARVEDILOL 3.125 MG TABLET (FP) PO SCH ×2 (09:18→21:40)
[2019-03-29] MEDS: clonazePAM 2 MG TABLET PO SCH ×2 (09:18→21:42)
[2019-03-29] MEDS: HEPARIN NA (PORCINE) 5,000 UNITS/ML 1ML VIAL SQ SCH ×2 (09:19→21:38)
[2019-03-29] MEDS: DIVALPROEX NA *ER* EXTEND REL 500 MG TABLET.SA (FP) PO SCH (09:20)
[2019-03-29] MEDS: QUEtiapine FUMARATE 100 MG TABLET (FP) PO SCH ×2 (09:20→21:40)
[2019-03-29] MEDS: SILVER SULFADIAZINE 1% TOP CREAM 50 GM JAR TP SCH ×2 (09:21→21:42)
--- NOTE | 2019-03-29 10:38 | PN ---
Progress Note, Physician History of Present Illness: pulmonary alert,comfortable,breathing better. - Current Medication List Current Medications: Active Medications Acetaminophen (Tylenol -) 650 mg PO Q6H PRN PRN Reason: PAIN LEVEL 1-5 Albuterol/Ipratropium (Duoneb -) 1 amp NEB RQID [facility] Last Admin: 03/29/19 08:20 Dose: 1 amp Atorvastatin Calcium (Lipitor -) 10 mg PO HS [facility] Last Admin: 03/28/19 22:25 Dose: 10 mg Carbidopa/Levodopa (Sinemet 25/100 -) 1 each PO TID [facility] Last Admin: 03/29/19 06:10 Dose: 1 each Carvedilol (Coreg -) 3.125 mg PO BID [facility] Last Admin: 03/29/19 09:18 Dose: 3.125 mg Clonazepam (Klonopin -) 1 mg PO BID [facility] Last Admin: 03/29/19 09:18 Dose: 1 mg Divalproex Sodium (Depakote *Er* -) 1,000 mg PO DAILY [facility] Last Admin: 03/29/19 09:20 Dose: 1,000 mg Heparin Sodium (Porcine) (Heparin -) 5,000 unit SQ BID [facility] Last Admin: 03/29/19 09:19 Dose: 5,000 unit Piperacillin Sod/Tazobactam (Sod 3.375 gm/ Dextrose) 50 mls @ 100 mls/hr IVPB Q8H-IV [facility]; Protocol Last Admin: 03/29/19 09:20 Dose: 100 mls/hr Insulin Aspart (Novolog Vial Sliding Scale -) 1 vial SQ TIDAC [facility]; Protocol Last Admin: 03/29/19 06:11 Dose: 3 units Levothyroxine Sodium 112 mcg/ (Levothyroxine Sodium 25 mcg) 137 mcg PO DAILY@ 0700 [facility] Last Admin: 03/29/19 06:10 Dose: 137 mcg Methylprednisolone Sodium Succinate (Solu-Medrol -) 40 mg IVPUSH Q6H-IV [facility] Last Admin: 03/29/19 09:19 Dose: 40 mg Olanzapine (Zyprexa -) 20 mg PO HS [facility] Last Admin: 03/28/19 22:25 Dose: 20 mg Pantoprazole Sodium (Protonix -) 40 mg PO DAILY [facility] Last Admin: 03/29/19 09:18 Dose: 40 mg Quetiapine Fumarate (Seroquel -) 100 mg PO BID [facility] Last Admin: 03/29/19 09:20 Dose: 100 mg Silver Sulfadiazine (Silvadene -) 1 applic TP BID [facility] Last Admin: 03/29/19 09:21 Dose: 1 applic Zinc Sulfate (Orazinc -) 220 mg PO DAILY [facility] Last Admin: 03/29/19 09:18 Dose: 220 mg - Objective Vital Signs: Vital Signs Temperature 98.0 F 03/29/19 06:00 Pulse Rate 61 03/29/19 06:00 Respiratory Rate 20 03/29/19 06:00 Blood Pressure 142/76 03/29/19 06:00 O2 Sat by Pulse Oximetry (%) 92 L 03/28/19 21:00 Constitutional: Yes: Well Nourished, Calm Eyes: Yes: WNL HENT: Yes: WNL Neck: Yes: WNL Cardiovascular: Yes: Regular Rate and Rhythm, S1, S2 Respiratory: Yes: Diminished Gastrointestinal: Yes: Normal Bowel Sounds, Soft, Abdomen, Obese Extremities: Yes: WNL Edema: No Labs: CBC, BMP 03/29/19 06:11 03/29/19 06:11 INR, PTT INR 1.07 (0.83-1.09) 03/27/19 12:25 Problem List - Problems (1) Schizophrenia Code(s): F20.9 - SCHIZOPHRENIA, UNSPECIFIED (2) Acute exacerbation of chronic obstructive pulmonary disease (COPD) Code(s): J44.1 - CHRONIC OBSTRUCTIVE PULMONARY DISEASE W (ACUTE) EXACERBATION (3) Dementia Code(s): F03.90 - UNSPECIFIED DEMENTIA WITHOUT BEHAVIORAL DISTURBANCE (4) HTN (hypertension) Code(s): I10 - ESSENTIAL (PRIMARY) HYPERTENSION (5) Lethargy Code(s): R53.83 - OTHER FATIGUE (6) Parkinson's disease Code(s): G20 - PARKINSON'S DISEASE (7) Acute respiratory failure with hypoxia and hypercapnia Code(s): J96.01 - ACUTE RESPIRATORY FAILURE WITH HYPOXIA; J96.02 - ACUTE RESPIRATORY FAILURE WITH HYPERCAPNIA (8) Hypernatremia Code(s): E87.0 - HYPEROSMOLALITY AND HYPERNATREMIA Assessment/Plan IMP ACUTE HYPOXEMIC/HYPERCAPNEIC RESPIRATORY FAILURE COPD WITH ACUTE EXACERBATION LETHARGY improved HTN PARKINSONS SCHIZOPHRENIA + TROPONIN HYPERNATREMIA improving NOVA PLAN MEDROL same dose INHALED BRONCHODILATORS F/U ABG NIPPV NEEDED MONITOR LYTES,RENAL FUNCTION,NA LEVEL IVF DR ALVAREZ Problem List - Problems (1) Schizophrenia Code(s): F20.9 - SCHIZOPHRENIA, UNSPECIFIED (2) Acute exacerbation of chronic obstructive pulmonary disease (COPD) Code(s): J44.1 - CHRONIC OBSTRUCTIVE PULMONARY DISEASE W (ACUTE) EXACERBATION (3) Dementia Code(s): F03.90 - UNSPECIFIED DEMENTIA WITHOUT BEHAVIORAL DISTURBANCE (4) HTN (hypertension) Code(s): I10 - ESSENTIAL (PRIMARY) HYPERTENSION (5) Lethargy Code(s): R53.83 - OTHER FATIGUE (6) Parkinson's disease Code(s): G20 - PARKINSON'S DISEASE (7) Acute respiratory failure with hypoxia and hypercapnia Code(s): J96.01 - ACUTE RESPIRATORY FAILURE WITH HYPOXIA; J96.02 - ACUTE RESPIRATORY FAILURE WITH HYPERCAPNIA (8) Hypernatremia Code(s): E87.0 - HYPEROSMOLALITY AND HYPERNATREMIA
--- NOTE | 2019-03-29 11:29 | PN ---
Progress Note (short form) - Note Progress Note: s: lethargic, not answering questions. Current Medications Acetaminophen (Tylenol -) 650 mg PO Q6H PRN PRN Reason: PAIN LEVEL 1-5 Albuterol/Ipratropium (Duoneb -) 1 amp NEB RQID [facility] Last Admin: 03/29/19 08:20 Dose: 1 amp Atorvastatin Calcium (Lipitor -) 10 mg PO HS [facility] Last Admin: 03/28/19 22:25 Dose: 10 mg Carbidopa/Levodopa (Sinemet 25/100 -) 1 each PO TID [facility] Last Admin: 03/29/19 06:10 Dose: 1 each Carvedilol (Coreg -) 3.125 mg PO BID [facility] Last Admin: 03/29/19 09:18 Dose: 3.125 mg Clonazepam (Klonopin -) 1 mg PO BID [facility] Last Admin: 03/29/19 09:18 Dose: 1 mg Divalproex Sodium (Depakote *Er* -) 1,000 mg PO DAILY [facility] Last Admin: 03/29/19 09:20 Dose: 1,000 mg Heparin Sodium (Porcine) (Heparin -) 5,000 unit SQ BID [facility] Last Admin: 03/29/19 09:19 Dose: 5,000 unit Piperacillin Sod/Tazobactam (Sod 3.375 gm/ Dextrose) 50 mls @ 100 mls/hr IVPB Q8H-IV [facility]; Protocol Last Admin: 03/29/19 09:20 Dose: 100 mls/hr Insulin Aspart (Novolog Vial Sliding Scale -) 1 vial SQ TIDAC [facility]; Protocol Last Admin: 03/29/19 06:11 Dose: 3 units Levothyroxine Sodium 112 mcg/ (Levothyroxine Sodium 25 mcg) 137 mcg PO DAILY@ 0700 [facility] Last Admin: 03/29/19 06:10 Dose: 137 mcg Methylprednisolone Sodium Succinate (Solu-Medrol -) 40 mg IVPUSH Q6H-IV [facility] Last Admin: 03/29/19 09:19 Dose: 40 mg Olanzapine (Zyprexa -) 20 mg PO HS [facility] Last Admin: 03/28/19 22:25 Dose: 20 mg Pantoprazole Sodium (Protonix -) 40 mg PO DAILY [facility] Last Admin: 03/29/19 09:18 Dose: 40 mg Quetiapine Fumarate (Seroquel -) 100 mg PO BID [facility] Last Admin: 03/29/19 09:20 Dose: 100 mg Silver Sulfadiazine (Silvadene -) 1 applic TP BID [facility] Last Admin: 03/29/19 09:21 Dose: 1 applic Zinc Sulfate (Orazinc -) 220 mg PO DAILY [facility] Last Admin: 03/29/19 09:18 Dose: 220 mg Vital Signs Period Temp Pulse Resp BP Sys/Hanna Pulse Ox Last 24 Hr 97.5 F-99.1 F 61-98 20-20 120-142/59-76 92-97 Constitutional: Yes: Calm Respiratory: Yes: Rhonchi Cardiovascular: Yes: Regular Rate and Rhythm JVD: No Heart Sounds: Yes: S1, S2 Murmur: Yes: Systolic Murmur (loud systolic murmur RSB) Edema: Yes Edema: LLE: 1+, RLE: 1+ Neuro: alert psych: not agitated no jaundice, diaphoresis NSR 87bpm, poor R wave Imaging - Results Chest X-ray: Image Reviewed MRI: Image Reviewed tele: sinus, PVCs Assessment/Plan 73 year old male, with a significant past medical history of Parkinson's, dementia, HTN, COPD, schizophrenia, bipolar who presents to the emergency department with via EMS from [facility] with lethargy and shortness of breath. Patient has been receiving IVF in [facility] for renal insuffiency. IMP: Murmur Lethargy of unclear etiology Hypernatremia Parkinson's disease Dementia Psych disorder REC: 1. Hypernatremia suggests free water deficit. holding lasix 2. Echo to assess EF, murmur - pending 3. Do not suspect borderline TnI represents ACS. Flat, nonischemic ECG. May be borderline elevated in setting of chronic valvular heart dz (murmur), suspect the BNP is from same. 4. Cont tele
--- NOTE | 2019-03-29 11:35 | PN ---
Progress Note (short form) - Note Progress Note: more awake. no distress pulls out lines/ risk of fall mood ok -- says he is fine Vital Signs Temp 98.0 F 03/29/19 06:00 Pulse 61 03/29/19 06:00 Resp 20 03/29/19 09:00 BP 142/76 03/29/19 06:00 Pulse Ox 97 03/29/19 09:00 Intake & Output 03/28/19 03/28/19 03/29/19 11:59 23:59 11:59 Intake Total 650 70 Balance 650 70 Weight 208 lb 12.8 oz Intake: IV 20 Saline lock 20 IVPB 100 50 Oral 550 Other: Voiding Method Incontinent Incontinent Incontinent # Unmeasured Voids Void 2 Bowel Movement No No Weight Measurement Method Patient Lift Scale Active Medications Acetaminophen (Tylenol -) 650 mg PO Q6H PRN PRN Reason: PAIN LEVEL 1-5 Albuterol/Ipratropium (Duoneb -) 1 amp NEB RQID [facility] Last Admin: 03/29/19 08:20 Dose: 1 amp Atorvastatin Calcium (Lipitor -) 10 mg PO HS [facility] Last Admin: 03/28/19 22:25 Dose: 10 mg Carbidopa/Levodopa (Sinemet 25/100 -) 1 each PO TID [facility] Last Admin: 03/29/19 06:10 Dose: 1 each Carvedilol (Coreg -) 3.125 mg PO BID [facility] Last Admin: 03/29/19 09:18 Dose: 3.125 mg Clonazepam (Klonopin -) 1 mg PO BID [facility] Last Admin: 03/29/19 09:18 Dose: 1 mg Divalproex Sodium (Depakote *Er* -) 1,000 mg PO DAILY [facility] Last Admin: 03/29/19 09:20 Dose: 1,000 mg Heparin Sodium (Porcine) (Heparin -) 5,000 unit SQ BID [facility] Last Admin: 03/29/19 09:19 Dose: 5,000 unit Piperacillin Sod/Tazobactam (Sod 3.375 gm/ Dextrose) 50 mls @ 100 mls/hr IVPB Q8H-IV [facility]; Protocol Last Admin: 03/29/19 09:20 Dose: 100 mls/hr Insulin Aspart (Novolog Vial Sliding Scale -) 1 vial SQ TIDAC [facility]; Protocol Last Admin: 03/29/19 06:11 Dose: 3 units Levothyroxine Sodium 112 mcg/ (Levothyroxine Sodium 25 mcg) 137 mcg PO DAILY@ 0700 [facility] Last Admin: 03/29/19 06:10 Dose: 137 mcg Methylprednisolone Sodium Succinate (Solu-Medrol -) 40 mg IVPUSH Q6H-IV [facility] Last Admin: 03/29/19 09:19 Dose: 40 mg Olanzapine (Zyprexa -) 20 mg PO HS [facility] Last Admin: 03/28/19 22:25 Dose: 20 mg Pantoprazole Sodium (Protonix -) 40 mg PO DAILY [facility] Last Admin: 03/29/19 09:18 Dose: 40 mg Quetiapine Fumarate (Seroquel -) 100 mg PO BID [facility] Last Admin: 03/29/19 09:20 Dose: 100 mg Silver Sulfadiazine (Silvadene -) 1 applic TP BID [facility] Last Admin: 03/29/19 09:21 Dose: 1 applic Zinc Sulfate (Orazinc -) 220 mg PO DAILY [facility] Last Admin: 03/29/19 09:18 Dose: 220 mg CBC, BMP 03/29/19 06:11 03/29/19 06:11 Microbiology 03/27/19 12:25 Blood Culture - Preliminary Blood - Peripheral Venous NO GROWTH OBTAINED AFTER 24 HOURS, INCUBATION TO CONTINUE FOR 4 DAYS. 03/27/19 12:25 Blood Culture - Preliminary Blood - Peripheral Venous NO GROWTH OBTAINED AFTER 24 HOURS, INCUBATION TO CONTINUE FOR 4 DAYS. 03/27/19 12:25 Gram Stain - Final Buttock - Right Wound Culture - Preliminary Group D Strep Or Entero Coccus 03/27/19 12:20 Urine Culture - Final Urine - Urine - Catheterized NO GROWTH OBTAINED Physical Examination Constitutional: Yes: No Distress awake Eyes: Yes: Conjunctiva Clear Neck: Yes: Supple Cardiovascular: Yes: Regular Rate and Rhythm Respiratory: Yes: Rhonchi (bilateral rhonchi)- improved Gastrointestinal: Yes: Soft, Abdomen, Obese Edema: LLE: 1+, RLE: 1+ Neurological: Yes: : Alert Psychiatric: No: Alert Imaging - Results Chest X-ray: Report Reviewed EKG: Report Reviewed Assessment/Plan better i/v lasix-- holding BIPAP started on steroids daily weigh echo pending Restart psych meds -- lower doses and monitor monitor labs [place] for safety d/w Rn also will follow Problem List - Problems (1) CHF exacerbation Code(s): I50.9 - HEART FAILURE, UNSPECIFIED (2) Schizophrenia Code(s): F20.9 - SCHIZOPHRENIA, UNSPECIFIED (3) Acute exacerbation of chronic obstructive pulmonary disease (COPD) Code(s): J44.1 - CHRONIC OBSTRUCTIVE PULMONARY DISEASE W (ACUTE) EXACERBATION (4) Dementia Code(s): F03.90 - UNSPECIFIED DEMENTIA WITHOUT BEHAVIORAL DISTURBANCE (5) Lethargy Code(s): R53.83 - OTHER FATIGUE (6) Parkinson's disease Code(s): G20 - PARKINSON'S DISEASE (7) Peripheral edema Code(s): R60.9 - EDEMA, UNSPECIFIED (8) Fever Code(s): R50.9 - FEVER, UNSPECIFIED
[2019-03-29] MEDS ORDERED: PT OWN MED DRAWER 7, Y5N ONE ×3 (18:25→21:41)
[2019-03-29] MEDS: OLANZapine 10 MG TABLET PO SCH (21:40)
[2019-03-29] MEDS: ATORVASTATIN CA 10 MG TABLET (FP) PO SCH (21:40)
[2019-03-30] MEDS ORDERED: PIPERACILLIN/TAZOBACTAM 3.375 GM VIAL IVPB ONE ×3 (01:07→17:21)
[2019-03-30] MEDS ORDERED: DEXTROSE 5%-WATER - 50 ML IVPB ONE ×3 (01:07→17:21)
[2019-03-30] MEDS: PIPERACILLIN/TAZOB 3.375 GM 3.375 GM in DEXTROSE 5%-WATER - 50 ML IVPB SCH ×3 (01:11→17:29)
[2019-03-30] MEDS: methylPREDNISolone NA SUCC 40 MG/1 ML VIAL IVPUSH SCH ×3 (03:34→17:29)
[2019-03-30] MEDS ORDERED: LEVOTHYROXINE NA 25 MCG TABLET (FP) ONE (05:13)
[2019-03-30] MEDS ORDERED: LEVOTHYROXINE NA 112 MCG TABLET (FP) ONE (05:13)
[2019-03-30] MEDS ORDERED: PT OWN MED DRAWER 7, Y5N ONE ×5 (05:13→20:53)
[2019-03-30] MEDS: INSULIN SLIDING SCALE (NOVOLOG) 1 VIAL SQ SCH ×3 (06:30→17:54)
[2019-03-30] MEDS: CARBIDOPA/LEVODOPA 25/100 TABLET (FP) PO SCH ×3 (06:30→22:13)
[2019-03-30] MEDS: LEVOTHYROXINE 112 MCG, LEVOTHYROXINE 25 MCG PO SCH (06:31)
[2019-03-30] MEDS: ALBUTEROL SO4 2.5/IPRATROPIUM 0.5 INH SOL 3 ML VIAL.NEB. NEB SCH ×4 (08:14→20:35)
[2019-03-30] MEDS: HEPARIN NA (PORCINE) 5,000 UNITS/ML 1ML VIAL SQ SCH ×2 (09:40→22:12)
[2019-03-30] MEDS: ZINC SULFATE 220 MG CAPSULE (FP) PO SCH (09:40)
[2019-03-30] MEDS: CARVEDILOL 3.125 MG TABLET (FP) PO SCH ×2 (09:40→22:12)
[2019-03-30] MEDS: PANTOPRAZOLE 40 MG TABLET (FP) PO SCH (09:40)
[2019-03-30] MEDS: clonazePAM 2 MG TABLET PO SCH ×2 (09:41→22:12)
[2019-03-30] MEDS: SILVER SULFADIAZINE 1% TOP CREAM 50 GM JAR TP SCH ×2 (09:41→22:13)
[2019-03-30] MEDS: QUEtiapine FUMARATE 100 MG TABLET (FP) PO SCH ×2 (09:41→22:13)
[2019-03-30] MEDS: DIVALPROEX NA *ER* EXTEND REL 500 MG TABLET.SA (FP) PO SCH (10:33)
--- NOTE | 2019-03-30 11:13 | PN ---
Progress Note, Physician History of Present Illness: PULMONARY ALERT,COMFORTABLE,SOB IMPROVING. - Current Medication List Current Medications: Active Medications Acetaminophen (Tylenol -) 650 mg PO Q6H PRN PRN Reason: PAIN LEVEL 1-5 Albuterol/Ipratropium (Duoneb -) 1 amp NEB RQID [facility] Last Admin: 03/30/19 08:14 Dose: 1 amp Atorvastatin Calcium (Lipitor -) 10 mg PO HS [facility] Last Admin: 03/29/19 21:40 Dose: 10 mg Carbidopa/Levodopa (Sinemet 25/100 -) 1 each PO TID [facility] Last Admin: 03/30/19 06:30 Dose: 1 each Carvedilol (Coreg -) 3.125 mg PO BID [facility] Last Admin: 03/30/19 09:40 Dose: 3.125 mg Clonazepam (Klonopin -) 1 mg PO BID [facility] Last Admin: 03/30/19 09:41 Dose: 1 mg Divalproex Sodium (Depakote *Er* -) 1,000 mg PO DAILY [facility] Last Admin: 03/30/19 10:33 Dose: 1,000 mg Heparin Sodium (Porcine) (Heparin -) 5,000 unit SQ BID [facility] Last Admin: 03/30/19 09:40 Dose: 5,000 unit Piperacillin Sod/Tazobactam (Sod 3.375 gm/ Dextrose) 50 mls @ 100 mls/hr IVPB Q8H-IV [facility]; Protocol Last Admin: 03/30/19 09:40 Dose: 100 mls/hr Insulin Aspart (Novolog Vial Sliding Scale -) 1 vial SQ TIDAC [facility]; Protocol Last Admin: 03/30/19 06:30 Dose: 3 units Levothyroxine Sodium 112 mcg/ (Levothyroxine Sodium 25 mcg) 137 mcg PO DAILY@ 0700 [facility] Last Admin: 03/30/19 06:31 Dose: 137 mcg Methylprednisolone Sodium Succinate (Solu-Medrol -) 40 mg IVPUSH Q6H-IV [facility] Last Admin: 03/30/19 09:40 Dose: 40 mg Olanzapine (Zyprexa -) 20 mg PO HS [facility] Last Admin: 03/29/19 21:40 Dose: 20 mg Pantoprazole Sodium (Protonix -) 40 mg PO DAILY [facility] Last Admin: 03/30/19 09:40 Dose: 40 mg Quetiapine Fumarate (Seroquel -) 100 mg PO BID [facility] Last Admin: 03/30/19 09:41 Dose: 100 mg Silver Sulfadiazine (Silvadene -) 1 applic TP BID [facility] Last Admin: 03/30/19 09:41 Dose: 1 applic Zinc Sulfate (Orazinc -) 220 mg PO DAILY [facility] Last Admin: 03/30/19 09:40 Dose: 220 mg - Objective Vital Signs: Vital Signs Temperature 98.2 F 03/30/19 09:38 Pulse Rate 55 L 03/30/19 09:38 Respiratory Rate 18 03/30/19 09:38 Blood Pressure 147/62 03/30/19 09:38 O2 Sat by Pulse Oximetry (%) 99 03/30/19 09:00 Constitutional: Yes: Calm Eyes: Yes: WNL HENT: Yes: WNL Neck: Yes: WNL Cardiovascular: Yes: Regular Rate and Rhythm, S1, S2 Respiratory: Yes: Rhonchi (FEW SCATTERED RHONCHI) Extremities: Yes: WNL Edema: No Labs: CBC, BMP 03/29/19 06:11 03/29/19 06:11 INR, PTT INR 1.07 (0.83-1.09) 03/27/19 12:25 Problem List - Problems (1) Schizophrenia Code(s): F20.9 - SCHIZOPHRENIA, UNSPECIFIED (2) Acute exacerbation of chronic obstructive pulmonary disease (COPD) Code(s): J44.1 - CHRONIC OBSTRUCTIVE PULMONARY DISEASE W (ACUTE) EXACERBATION (3) Dementia Code(s): F03.90 - UNSPECIFIED DEMENTIA WITHOUT BEHAVIORAL DISTURBANCE (4) HTN (hypertension) Code(s): I10 - ESSENTIAL (PRIMARY) HYPERTENSION (5) Lethargy Code(s): R53.83 - OTHER FATIGUE (6) Parkinson's disease Code(s): G20 - PARKINSON'S DISEASE (7) Acute respiratory failure with hypoxia and hypercapnia Code(s): J96.01 - ACUTE RESPIRATORY FAILURE WITH HYPOXIA; J96.02 - ACUTE RESPIRATORY FAILURE WITH HYPERCAPNIA (8) Hypernatremia Code(s): E87.0 - HYPEROSMOLALITY AND HYPERNATREMIA Assessment/Plan IMP ACUTE HYPOXEMIC/HYPERCAPNEIC RESPIRATORY FAILURE COPD WITH ACUTE EXACERBATION IMPROVING LETHARGY improved HTN PARKINSONS SCHIZOPHRENIA + TROPONIN HYPERNATREMIA improving NOVA PLAN MEDROL TAPER INHALED BRONCHODILATORS F/U ABG NIPPV NEEDED MONITOR LYTES,RENAL FUNCTION,NA LEVEL IVF DR ALVAREZ Problem List - Problems (1) Schizophrenia Code(s): F20.9 - SCHIZOPHRENIA, UNSPECIFIED (2) Acute exacerbation of chronic obstructive pulmonary disease (COPD) Code(s): J44.1 - CHRONIC OBSTRUCTIVE PULMONARY DISEASE W (ACUTE) EXACERBATION (3) Dementia Code(s): F03.90 - UNSPECIFIED DEMENTIA WITHOUT BEHAVIORAL DISTURBANCE (4) HTN (hypertension) Code(s): I10 - ESSENTIAL (PRIMARY) HYPERTENSION (5) Lethargy Code(s): R53.83 - OTHER FATIGUE (6) Parkinson's disease Code(s): G20 - PARKINSON'S DISEASE (7) Acute respiratory failure with hypoxia and hypercapnia Code(s): J96.01 - ACUTE RESPIRATORY FAILURE WITH HYPOXIA; J96.02 - ACUTE RESPIRATORY FAILURE WITH HYPERCAPNIA (8) Hypernatremia Code(s): E87.0 - HYPEROSMOLALITY AND HYPERNATREMIA
--- NOTE | 2019-03-30 11:29 | PN ---
Progress Note (short form) - Note Progress Note: patient seen and examined. Looks and feels better. No distress. Poor historian Vital Signs Temp 98.2 F 03/30/19 09:38 Pulse 55 L 03/30/19 09:38 Resp 18 03/30/19 09:38 BP 147/62 03/30/19 09:38 Pulse Ox 99 03/30/19 09:00 Intake & Output 03/29/19 03/29/19 03/30/19 11:59 23:59 11:59 Intake Total 70 3370 490 Balance 70 3370 490 Intake: IV 20 20 10 Saline lock 20 20 10 IVPB 50 50 Oral 3300 480 Other: Voiding Method Incontinent Diaper Diaper # Unmeasured Voids Void 2 1 Bowel Movement No No No Active Medications Acetaminophen (Tylenol -) 650 mg PO Q6H PRN PRN Reason: PAIN LEVEL 1-5 Albuterol/Ipratropium (Duoneb -) 1 amp NEB RQID [facility] Last Admin: 03/30/19 08:14 Dose: 1 amp Atorvastatin Calcium (Lipitor -) 10 mg PO HS [facility] Last Admin: 03/29/19 21:40 Dose: 10 mg Carbidopa/Levodopa (Sinemet 25/100 -) 1 each PO TID [facility] Last Admin: 03/30/19 06:30 Dose: 1 each Carvedilol (Coreg -) 3.125 mg PO BID [facility] Last Admin: 03/30/19 09:40 Dose: 3.125 mg Clonazepam (Klonopin -) 1 mg PO BID [facility] Last Admin: 03/30/19 09:41 Dose: 1 mg Divalproex Sodium (Depakote *Er* -) 1,000 mg PO DAILY [facility] Last Admin: 03/30/19 10:33 Dose: 1,000 mg Heparin Sodium (Porcine) (Heparin -) 5,000 unit SQ BID [facility] Last Admin: 03/30/19 09:40 Dose: 5,000 unit Piperacillin Sod/Tazobactam (Sod 3.375 gm/ Dextrose) 50 mls @ 100 mls/hr IVPB Q8H-IV [facility]; Protocol Last Admin: 03/30/19 09:40 Dose: 100 mls/hr Insulin Aspart (Novolog Vial Sliding Scale -) 1 vial SQ TIDAC [facility]; Protocol Last Admin: 03/30/19 06:30 Dose: 3 units Levothyroxine Sodium 112 mcg/ (Levothyroxine Sodium 25 mcg) 137 mcg PO DAILY@ 0700 [facility] Last Admin: 03/30/19 06:31 Dose: 137 mcg Methylprednisolone Sodium Succinate (Solu-Medrol -) 40 mg IVPUSH Q8H-IV [facility] Olanzapine (Zyprexa -) 20 mg PO HS [facility] Last Admin: 03/29/19 21:40 Dose: 20 mg Pantoprazole Sodium (Protonix -) 40 mg PO DAILY [facility] Last Admin: 03/30/19 09:40 Dose: 40 mg Quetiapine Fumarate (Seroquel -) 100 mg PO BID [facility] Last Admin: 03/30/19 09:41 Dose: 100 mg Silver Sulfadiazine (Silvadene -) 1 applic TP BID [facility] Last Admin: 03/30/19 09:41 Dose: 1 applic Zinc Sulfate (Orazinc -) 220 mg PO DAILY [facility] Last Admin: 03/30/19 09:40 Dose: 220 mg CBC, BMP 03/29/19 06:11 03/29/19 06:11 Microbiology 03/27/19 12:25 Gram Stain - Final Buttock - Right Wound Culture - Preliminary Enterococcus Faecalis Non Lactose Fermenting Gnb 03/27/19 12:25 Blood Culture - Preliminary Blood - Peripheral Venous NO GROWTH OBTAINED AFTER 48 HOURS, INCUBATION TO CONTINUE FOR 3 DAYS. 03/27/19 12:25 Blood Culture - Preliminary Blood - Peripheral Venous NO GROWTH OBTAINED AFTER 48 HOURS, INCUBATION TO CONTINUE FOR 3 DAYS. Physical Examination Constitutional: Yes: No Distress. awake Eyes: Yes: Conjunctiva Clear Neck: Yes: Supple Cardiovascular: Yes: Regular Rate and Rhythm Respiratory: Yes: Rhonchi (bilateral rhonchi)- improved ---Scattered Gastrointestinal: Yes: Soft, Abdomen, Obese Edema: LLE: 1+, RLE: 1+ Neurological: Yes: : Alert Psychiatric: No: Alert Imaging - Results Chest X-ray: Report Reviewed EKG: Report Reviewed Assessment/Plan better i/v lasix-- holding BIPAP Taper steroids daily weigh echo pending Ta for safety d/w Rn also will follow Problem List - Problems (1) CHF exacerbation Code(s): I50.9 - HEART FAILURE, UNSPECIFIED (2) Schizophrenia Code(s): F20.9 - SCHIZOPHRENIA, UNSPECIFIED (3) Acute exacerbation of chronic obstructive pulmonary disease (COPD) Code(s): J44.1 - CHRONIC OBSTRUCTIVE PULMONARY DISEASE W (ACUTE) EXACERBATION (4) Dementia Code(s): F03.90 - UNSPECIFIED DEMENTIA WITHOUT BEHAVIORAL DISTURBANCE (5) Lethargy Code(s): R53.83 - OTHER FATIGUE (6) Parkinson's disease Code(s): G20 - PARKINSON'S DISEASE (7) Peripheral edema Code(s): R60.9 - EDEMA, UNSPECIFIED (8) Fever Code(s): R50.9 - FEVER, UNSPECIFIED Problem List - Problems (1) CHF exacerbation Code(s): I50.9 - HEART FAILURE, UNSPECIFIED (2) Schizophrenia Code(s): F20.9 - SCHIZOPHRENIA, UNSPECIFIED (3) Acute exacerbation of chronic obstructive pulmonary disease (COPD) Code(s): J44.1 - CHRONIC OBSTRUCTIVE PULMONARY DISEASE W (ACUTE) EXACERBATION (4) Dementia Code(s): F03.90 - UNSPECIFIED DEMENTIA WITHOUT BEHAVIORAL DISTURBANCE (5) Lethargy Code(s): R53.83 - OTHER FATIGUE (6) Parkinson's disease Code(s): G20 - PARKINSON'S DISEASE (7) Peripheral edema Code(s): R60.9 - EDEMA, UNSPECIFIED (8) Fever Code(s): R50.9 - FEVER, UNSPECIFIED
--- NOTE | 2019-03-30 11:30 | PN ---
Progress Note (short form) - Note Progress Note: s: confused, not answering questions appropriately Current Medications Acetaminophen (Tylenol -) 650 mg PO Q6H PRN PRN Reason: PAIN LEVEL 1-5 Albuterol/Ipratropium (Duoneb -) 1 amp NEB RQID [facility] Last Admin: 03/30/19 08:14 Dose: 1 amp Atorvastatin Calcium (Lipitor -) 10 mg PO HS [facility] Last Admin: 03/29/19 21:40 Dose: 10 mg Carbidopa/Levodopa (Sinemet 25/100 -) 1 each PO TID [facility] Last Admin: 03/30/19 06:30 Dose: 1 each Carvedilol (Coreg -) 3.125 mg PO BID [facility] Last Admin: 03/30/19 09:40 Dose: 3.125 mg Clonazepam (Klonopin -) 1 mg PO BID [facility] Last Admin: 03/30/19 09:41 Dose: 1 mg Divalproex Sodium (Depakote *Er* -) 1,000 mg PO DAILY [facility] Last Admin: 03/30/19 10:33 Dose: 1,000 mg Heparin Sodium (Porcine) (Heparin -) 5,000 unit SQ BID [facility] Last Admin: 03/30/19 09:40 Dose: 5,000 unit Piperacillin Sod/Tazobactam (Sod 3.375 gm/ Dextrose) 50 mls @ 100 mls/hr IVPB Q8H-IV [facility]; Protocol Last Admin: 03/30/19 09:40 Dose: 100 mls/hr Insulin Aspart (Novolog Vial Sliding Scale -) 1 vial SQ TIDAC [facility]; Protocol Last Admin: 03/30/19 06:30 Dose: 3 units Levothyroxine Sodium 112 mcg/ (Levothyroxine Sodium 25 mcg) 137 mcg PO DAILY@ 0700 [facility] Last Admin: 03/30/19 06:31 Dose: 137 mcg Methylprednisolone Sodium Succinate (Solu-Medrol -) 40 mg IVPUSH Q8H-IV [facility] Olanzapine (Zyprexa -) 20 mg PO HS [facility] Last Admin: 03/29/19 21:40 Dose: 20 mg Pantoprazole Sodium (Protonix -) 40 mg PO DAILY [facility] Last Admin: 03/30/19 09:40 Dose: 40 mg Quetiapine Fumarate (Seroquel -) 100 mg PO BID [facility] Last Admin: 03/30/19 09:41 Dose: 100 mg Silver Sulfadiazine (Silvadene -) 1 applic TP BID [facility] Last Admin: 03/30/19 09:41 Dose: 1 applic Zinc Sulfate (Orazinc -) 220 mg PO DAILY [facility] Last Admin: 03/30/19 09:40 Dose: 220 mg Vital Signs Period Temp Pulse Resp BP Sys/Hanna Pulse Ox Last 24 Hr 97.5 F-98.4 F 55-140 18-20 127-147/62-74 99-99 Constitutional: Yes: Calm Respiratory: Yes: Rhonchi Cardiovascular: Yes: Regular Rate and Rhythm JVD: No Heart Sounds: Yes: S1, S2 Murmur: Yes: Systolic Murmur (loud systolic murmur RSB) Edema: Yes Edema: LLE: 1+, RLE: 1+ Neuro: alert psych: not agitated no jaundice, diaphoresis NSR 87bpm, poor R wave Imaging - Results Chest X-ray: Image Reviewed MRI: Image Reviewed tele: sinus, PVCs Assessment/Plan 73 year old male, with a significant past medical history of Parkinson's, dementia, HTN, COPD, schizophrenia, bipolar who presents to the emergency department with via EMS from [facility] with lethargy and shortness of breath. [facility] insuffiency. IMP: Murmur Lethargy of unclear etiology Hypernatremia Parkinson's disease Dementia Psych disorder REC: 1. Hypernatremia suggests free water deficit. holding lasix 2. Echo to assess EF, murmur - pending 3. Do not suspect borderline TnI represents ACS. Flat, nonischemic ECG. May be borderline elevated in setting of chronic valvular heart dz (murmur), suspect the BNP is from same. 4. Cont tele
[2019-03-30] MEDS: ATORVASTATIN CA 10 MG TABLET (FP) PO SCH (22:13)
[2019-03-30] MEDS: OLANZapine 10 MG TABLET PO SCH (22:14)
[2019-03-31] MEDS ORDERED: PIPERACILLIN/TAZOBACTAM 3.375 GM VIAL IVPB ONE ×3 (00:43→18:16)
[2019-03-31] MEDS ORDERED: DEXTROSE 5%-WATER - 50 ML IVPB ONE ×3 (00:43→18:17)
[2019-03-31] MEDS: PIPERACILLIN/TAZOB 3.375 GM 3.375 GM in DEXTROSE 5%-WATER - 50 ML IVPB SCH ×3 (01:01→18:18)
[2019-03-31] MEDS: methylPREDNISolone NA SUCC 40 MG/1 ML VIAL IVPUSH SCH ×4 (01:01→22:17)
[2019-03-31] MEDS ORDERED: LEVOTHYROXINE NA 25 MCG TABLET (FP) ONE (04:44)
[2019-03-31] MEDS ORDERED: LEVOTHYROXINE NA 112 MCG TABLET (FP) ONE (04:44)
[2019-03-31] MEDS: LEVOTHYROXINE 112 MCG, LEVOTHYROXINE 25 MCG PO SCH (06:15)
[2019-03-31] MEDS: CARBIDOPA/LEVODOPA 25/100 TABLET (FP) PO SCH ×3 (06:15→22:16)
[2019-03-31] MEDS: INSULIN SLIDING SCALE (NOVOLOG) 1 VIAL SQ SCH ×3 (06:15→18:14)
[2019-03-31] MEDS: ALBUTEROL SO4 2.5/IPRATROPIUM 0.5 INH SOL 3 ML VIAL.NEB. NEB SCH ×4 (08:09→21:20)
[2019-03-31] MEDS: PANTOPRAZOLE 40 MG TABLET (FP) PO SCH (09:49)
[2019-03-31] MEDS: ZINC SULFATE 220 MG CAPSULE (FP) PO SCH (09:49)
[2019-03-31] MEDS: clonazePAM 2 MG TABLET PO SCH ×2 (09:50→22:18)
[2019-03-31] MEDS: HEPARIN NA (PORCINE) 5,000 UNITS/ML 1ML VIAL SQ SCH ×2 (09:50→22:19)
[2019-03-31] MEDS: CARVEDILOL 3.125 MG TABLET (FP) PO SCH ×2 (09:50→22:18)
[2019-03-31] MEDS: DIVALPROEX NA *ER* EXTEND REL 500 MG TABLET.SA (FP) PO SCH (09:51)
[2019-03-31] MEDS: QUEtiapine FUMARATE 100 MG TABLET (FP) PO SCH ×3 (09:51→22:17)
[2019-03-31] MEDS: SILVER SULFADIAZINE 1% TOP CREAM 50 GM JAR TP SCH ×2 (09:53→22:19)
--- NOTE | 2019-03-31 09:55 | PN ---
Progress Note (short form) - Note Progress Note: Pt seen/ examined awake. comfortable no distress overall much better Vital Signs Temp 97.8 F 03/31/19 06:00 Pulse 50 L 03/31/19 06:00 Resp 20 03/31/19 06:00 BP 125/73 03/31/19 06:00 Pulse Ox 96 03/30/19 21:00 Intake & Output 03/30/19 03/30/19 03/31/19 11:59 23:59 11:59 Intake Total 490 3430 1610 Balance 490 3430 1610 Weight 208 lb Intake: IV 10 30 10 Saline lock 10 30 10 IVPB 100 100 Oral 480 3300 1500 Other: Voiding Method Incontinent Diaper Diaper # Unmeasured Voids Void 1 4 4 Bowel Movement No No No Weight Measurement Method Patient Lift Scale Active Medications Acetaminophen (Tylenol -) 650 mg PO Q6H PRN PRN Reason: PAIN LEVEL 1-5 Albuterol/Ipratropium (Duoneb -) 1 amp NEB RQID [facility] Last Admin: 03/31/19 08:09 Dose: 1 amp Atorvastatin Calcium (Lipitor -) 10 mg PO HS [facility] Last Admin: 03/30/19 22:13 Dose: 10 mg Carbidopa/Levodopa (Sinemet 25/100 -) 1 each PO TID [facility] Last Admin: 03/31/19 06:15 Dose: 1 each Carvedilol (Coreg -) 3.125 mg PO BID [facility] Last Admin: 03/30/19 22:12 Dose: 3.125 mg Clonazepam (Klonopin -) 1 mg PO BID [facility] Last Admin: 03/30/19 22:12 Dose: 1 mg Divalproex Sodium (Depakote *Er* -) 1,000 mg PO DAILY [facility] Last Admin: 03/30/19 10:33 Dose: 1,000 mg Heparin Sodium (Porcine) (Heparin -) 5,000 unit SQ BID [facility] Last Admin: 03/30/19 22:12 Dose: 5,000 unit Piperacillin Sod/Tazobactam (Sod 3.375 gm/ Dextrose) 50 mls @ 100 mls/hr IVPB Q8H-IV [facility]; Protocol Last Admin: 03/31/19 01:01 Dose: 100 mls/hr Insulin Aspart (Novolog Vial Sliding Scale -) 1 vial SQ TIDAC [facility]; Protocol Last Admin: 03/31/19 06:15 Dose: 5 units Levothyroxine Sodium 112 mcg/ (Levothyroxine Sodium 25 mcg) 137 mcg PO DAILY@ 0700 [facility] Last Admin: 03/31/19 06:15 Dose: 137 mcg Methylprednisolone Sodium Succinate (Solu-Medrol -) 40 mg IVPUSH BID [facility] Olanzapine (Zyprexa -) 20 mg PO HS [facility] Last Admin: 03/30/19 22:14 Dose: 20 mg Pantoprazole Sodium (Protonix -) 40 mg PO DAILY [facility] Last Admin: 03/30/19 09:40 Dose: 40 mg Quetiapine Fumarate (Seroquel -) 200 mg PO BID [facility] Silver Sulfadiazine (Silvadene -) 1 applic TP BID [facility] Last Admin: 03/30/19 22:13 Dose: 1 applic Zinc Sulfate (Orazinc -) 220 mg PO DAILY [facility] Last Admin: 03/30/19 09:40 Dose: 220 mg CBC, BMP 03/29/19 06:11 03/29/19 06:11 Microbiology 03/27/19 12:25 Gram Stain - Final Buttock - Right Wound Culture - Final Enterococcus Faecalis Pseudo Fluorescens/[place] 03/29/19 14:45 Legionella Antigen - Final Urine For Antigen Detection Streptococcus pneumoniae Antigen (M - Final 03/27/19 12:25 Blood Culture - Preliminary Blood - Peripheral Venous NO GROWTH OBTAINED AFTER 72 HOURS, INCUBATION TO CONTINUE FOR 2 DAYS. 03/27/19 12:25 Blood Culture - Preliminary Blood - Peripheral Venous NO GROWTH OBTAINED AFTER 72 HOURS, INCUBATION TO CONTINUE FOR 2 DAYS. Physical Examination Constitutional: Yes: No Distress. awake Eyes: Yes: Conjunctiva Clear Neck: Yes: Supple Cardiovascular: Yes: Regular Rate and Rhythm Respiratory: Yes: Rhonchi (bilateral rhonchi)- improved ---Scattered Gastrointestinal: Yes: Soft, Abdomen, Obese Edema: LLE: 1+, RLE: 1+ Neurological: Yes: : Alert Psychiatric: No: Alert Imaging - Results Chest X-ray: Report Reviewed EKG: Report Reviewed Assessment/Plan better i/v lasix-- holding BIPAP Taper steroids daily weigh echo pending Ta for safety f/u labs Increase Seroquel abx d/w Rn also will follow Problem List - Problems (1) CHF exacerbation Code(s): I50.9 - HEART FAILURE, UNSPECIFIED (2) Schizophrenia Code(s): F20.9 - SCHIZOPHRENIA, UNSPECIFIED (3) Acute exacerbation of chronic obstructive pulmonary disease (COPD) Code(s): J44.1 - CHRONIC OBSTRUCTIVE PULMONARY DISEASE W (ACUTE) EXACERBATION (4) Dementia Code(s): F03.90 - UNSPECIFIED DEMENTIA WITHOUT BEHAVIORAL DISTURBANCE (5) Lethargy Code(s): R53.83 - OTHER FATIGUE (6) Parkinson's disease Code(s): G20 - PARKINSON'S DISEASE (7) Peripheral edema Code(s): R60.9 - EDEMA, UNSPECIFIED (8) Fever Code(s): R50.9 - FEVER, UNSPECIFIED
--- NOTE | 2019-03-31 10:19 | PN ---
Progress Note, Physician History of Present Illness: PULMONARY ALERT,COMFORTABLE,-RESP DISTRESS - Current Medication List Current Medications: Active Medications Acetaminophen (Tylenol -) 650 mg PO Q6H PRN PRN Reason: PAIN LEVEL 1-5 Albuterol/Ipratropium (Duoneb -) 1 amp NEB RQID [facility] Last Admin: 03/31/19 08:09 Dose: 1 amp Atorvastatin Calcium (Lipitor -) 10 mg PO HS [facility] Last Admin: 03/30/19 22:13 Dose: 10 mg Carbidopa/Levodopa (Sinemet 25/100 -) 1 each PO TID [facility] Last Admin: 03/31/19 06:15 Dose: 1 each Carvedilol (Coreg -) 3.125 mg PO BID [facility] Last Admin: 03/31/19 09:50 Dose: 3.125 mg Clonazepam (Klonopin -) 1 mg PO BID [facility] Last Admin: 03/31/19 09:50 Dose: 1 mg Divalproex Sodium (Depakote *Er* -) 1,000 mg PO DAILY [facility] Last Admin: 03/31/19 09:51 Dose: 1,000 mg Heparin Sodium (Porcine) (Heparin -) 5,000 unit SQ BID [facility] Last Admin: 03/31/19 09:50 Dose: 5,000 unit Piperacillin Sod/Tazobactam (Sod 3.375 gm/ Dextrose) 50 mls @ 100 mls/hr IVPB Q8H-IV [facility]; Protocol Last Admin: 03/31/19 09:52 Dose: 100 mls/hr Insulin Aspart (Novolog Vial Sliding Scale -) 1 vial SQ TIDAC [facility]; Protocol Last Admin: 03/31/19 06:15 Dose: 5 units Levothyroxine Sodium 112 mcg/ (Levothyroxine Sodium 25 mcg) 137 mcg PO DAILY@ 0700 [facility] Last Admin: 03/31/19 06:15 Dose: 137 mcg Methylprednisolone Sodium Succinate (Solu-Medrol -) 40 mg IVPUSH BID [facility] Last Admin: 03/31/19 09:53 Dose: 40 mg Olanzapine (Zyprexa -) 20 mg PO HS [facility] Last Admin: 03/30/19 22:14 Dose: 20 mg Pantoprazole Sodium (Protonix -) 40 mg PO DAILY [facility] Last Admin: 03/31/19 09:49 Dose: 40 mg Quetiapine Fumarate (Seroquel -) 200 mg PO BID [facility] Last Admin: 03/31/19 09:53 Dose: 200 mg Silver Sulfadiazine (Silvadene -) 1 applic TP BID [facility] Last Admin: 03/31/19 09:53 Dose: 1 applic Zinc Sulfate (Orazinc -) 220 mg PO DAILY [facility] Last Admin: 03/31/19 09:49 Dose: 220 mg - Objective Vital Signs: Vital Signs Temperature 97.8 F 03/31/19 06:00 Pulse Rate 50 L 03/31/19 06:00 Respiratory Rate 20 03/31/19 06:00 Blood Pressure 125/73 03/31/19 06:00 O2 Sat by Pulse Oximetry (%) 96 03/30/19 21:00 Constitutional: Yes: Well Nourished, Calm Eyes: Yes: WNL HENT: Yes: WNL Neck: Yes: WNL Cardiovascular: Yes: Regular Rate and Rhythm, S1, S2 Respiratory: Yes: Rhonchi (FEW RHONCHI) Gastrointestinal: Yes: Normal Bowel Sounds, Soft Extremities: Yes: WNL Edema: No Labs: Problem List - Problems (1) Schizophrenia Code(s): F20.9 - SCHIZOPHRENIA, UNSPECIFIED (2) Acute exacerbation of chronic obstructive pulmonary disease (COPD) Code(s): J44.1 - CHRONIC OBSTRUCTIVE PULMONARY DISEASE W (ACUTE) EXACERBATION (3) Dementia Code(s): F03.90 - UNSPECIFIED DEMENTIA WITHOUT BEHAVIORAL DISTURBANCE (4) HTN (hypertension) Code(s): I10 - ESSENTIAL (PRIMARY) HYPERTENSION (5) Lethargy Code(s): R53.83 - OTHER FATIGUE (6) Parkinson's disease Code(s): G20 - PARKINSON'S DISEASE (7) Acute respiratory failure with hypoxia and hypercapnia Code(s): J96.01 - ACUTE RESPIRATORY FAILURE WITH HYPOXIA; J96.02 - ACUTE RESPIRATORY FAILURE WITH HYPERCAPNIA (8) Hypernatremia Code(s): E87.0 - HYPEROSMOLALITY AND HYPERNATREMIA Assessment/Plan IMP ACUTE HYPOXEMIC/HYPERCAPNEIC RESPIRATORY FAILURE IMPROVED COPD WITH ACUTE EXACERBATION IMPROVING LETHARGY improved HTN PARKINSONS SCHIZOPHRENIA + TROPONIN HYPERNATREMIA improving NOVA PLAN MEDROL TAPER INHALED BRONCHODILATORS F/U ABG ON RA NIPPV NEEDED MONITOR LYTES,RENAL FUNCTION,NA LEVEL DR ALVAREZ Problem List - Problems (1) Schizophrenia Code(s): F20.9 - SCHIZOPHRENIA, UNSPECIFIED (2) Acute exacerbation of chronic obstructive pulmonary disease (COPD) Code(s): J44.1 - CHRONIC OBSTRUCTIVE PULMONARY DISEASE W (ACUTE) EXACERBATION (3) Dementia Code(s): F03.90 - UNSPECIFIED DEMENTIA WITHOUT BEHAVIORAL DISTURBANCE (4) HTN (hypertension) Code(s): I10 - ESSENTIAL (PRIMARY) HYPERTENSION (5) Lethargy Code(s): R53.83 - OTHER FATIGUE (6) Parkinson's disease Code(s): G20 - PARKINSON'S DISEASE (7) Acute respiratory failure with hypoxia and hypercapnia Code(s): J96.01 - ACUTE RESPIRATORY FAILURE WITH HYPOXIA; J96.02 - ACUTE RESPIRATORY FAILURE WITH HYPERCAPNIA (8) Hypernatremia Code(s): E87.0 - HYPEROSMOLALITY AND HYPERNATREMIA
--- NOTE | 2019-03-31 13:12 | PN ---
Progress Note (short form) - Note Progress Note: s: confused, not answering questions appropriately Current Medications Acetaminophen (Tylenol -) 650 mg PO Q6H PRN PRN Reason: PAIN LEVEL 1-5 Albuterol/Ipratropium (Duoneb -) 1 amp NEB RQID [facility] Last Admin: 03/31/19 12:32 Dose: 1 amp Atorvastatin Calcium (Lipitor -) 10 mg PO HS [facility] Last Admin: 03/30/19 22:13 Dose: 10 mg Carbidopa/Levodopa (Sinemet 25/100 -) 1 each PO TID [facility] Last Admin: 03/31/19 06:15 Dose: 1 each Carvedilol (Coreg -) 3.125 mg PO BID [facility] Last Admin: 03/31/19 09:50 Dose: 3.125 mg Clonazepam (Klonopin -) 1 mg PO BID [facility] Last Admin: 03/31/19 09:50 Dose: 1 mg Divalproex Sodium (Depakote *Er* -) 1,000 mg PO DAILY [facility] Last Admin: 03/31/19 09:51 Dose: 1,000 mg Heparin Sodium (Porcine) (Heparin -) 5,000 unit SQ BID [facility] Last Admin: 03/31/19 09:50 Dose: 5,000 unit Piperacillin Sod/Tazobactam (Sod 3.375 gm/ Dextrose) 50 mls @ 100 mls/hr IVPB Q8H-IV [facility]; Protocol Last Admin: 03/31/19 09:52 Dose: 100 mls/hr Insulin Aspart (Novolog Vial Sliding Scale -) 1 vial SQ TIDAC [facility]; Protocol Last Admin: 03/31/19 12:24 Dose: Not Given Levothyroxine Sodium 112 mcg/ (Levothyroxine Sodium 25 mcg) 137 mcg PO DAILY@ 0700 [facility] Last Admin: 03/31/19 06:15 Dose: 137 mcg Methylprednisolone Sodium Succinate (Solu-Medrol -) 40 mg IVPUSH BID [facility] Last Admin: 03/31/19 09:53 Dose: 40 mg Olanzapine (Zyprexa -) 20 mg PO HS [facility] Last Admin: 03/30/19 22:14 Dose: 20 mg Pantoprazole Sodium (Protonix -) 40 mg PO DAILY [facility] Last Admin: 03/31/19 09:49 Dose: 40 mg Quetiapine Fumarate (Seroquel -) 200 mg PO BID [facility] Last Admin: 03/31/19 09:53 Dose: 200 mg Silver Sulfadiazine (Silvadene -) 1 applic TP BID [facility] Last Admin: 03/31/19 09:53 Dose: 1 applic Zinc Sulfate (Orazinc -) 220 mg PO DAILY [facility] Last Admin: 03/31/19 09:49 Dose: 220 mg Vital Signs Period Temp Pulse Resp BP Sys/Hanna Pulse Ox Last 24 Hr 97.7 F-98.6 F 50-66 20-20 116-143/59-81 96 Constitutional: Yes: Calm Respiratory: Yes: Rhonchi Cardiovascular: Yes: Regular Rate and Rhythm JVD: No Heart Sounds: Yes: S1, S2 Murmur: Yes: Systolic Murmur (loud systolic murmur RSB) Edema: Yes Edema: LLE: 1+, RLE: 1+ Neuro: alert psych: not agitated no jaundice, diaphoresis NSR 87bpm, poor R wave Imaging - Results Chest X-ray: Image Reviewed MRI: Image Reviewed Assessment/Plan 73 year old male, with a significant past medical history of Parkinson's, dementia, HTN, COPD, schizophrenia, bipolar who presents to the emergency department with via EMS from [facility] with lethargy and shortness of breath. Patient has been receiving IVF in custodial for renal insuffiency. IMP: Murmur Lethargy of unclear etiology Hypernatremia Parkinson's disease Dementia Psych disorder REC: 1. Hypernatremia suggests free water deficit. holding lasix 2. Echo to assess EF, murmur - pending 3. Do not suspect borderline TnI represents ACS. Flat, nonischemic ECG. May be borderline elevated in setting of chronic valvular heart dz (murmur), suspect the BNP is from same. 4. tele dc'ed
[2019-03-31] MEDS: OLANZapine 10 MG TABLET PO SCH (22:17)
[2019-03-31] MEDS: ATORVASTATIN CA 10 MG TABLET (FP) PO SCH (22:18)
[2019-04-01] MEDS ORDERED: PIPERACILLIN/TAZOBACTAM 3.375 GM VIAL IVPB ONE ×2 (02:24→09:02)
[2019-04-01] MEDS ORDERED: DEXTROSE 5%-WATER - 50 ML IVPB ONE ×2 (02:25→09:02)
[2019-04-01] MEDS: PIPERACILLIN/TAZOB 3.375 GM 3.375 GM in DEXTROSE 5%-WATER - 50 ML IVPB SCH ×2 (02:46→09:46)
[2019-04-01] MEDS ORDERED: LEVOTHYROXINE NA 112 MCG TABLET (FP) ONE (05:33)
[2019-04-01] MEDS ORDERED: LEVOTHYROXINE NA 25 MCG TABLET (FP) ONE (05:33)
[2019-04-01] MEDS: CARBIDOPA/LEVODOPA 25/100 TABLET (FP) PO SCH ×2 (06:05→13:14)
[2019-04-01] MEDS: LEVOTHYROXINE 112 MCG, LEVOTHYROXINE 25 MCG PO SCH ×2 (06:05→09:46)
[2019-04-01] MEDS: INSULIN SLIDING SCALE (NOVOLOG) 1 VIAL SQ SCH ×2 (06:20→11:07)
[2019-04-01 06:44] LABS: BASO % 0.1 % (0-2.0); EOS % 0.3 % (0-4.5); HEMATOCRIT 37.9 % (35.4-49); HEMOGLOBIN 12.6 GM/dL (11.7-16.9); LYMPH % 12.3 % (8-40); MCH 31.8 pg (25.7-33.7); MCHC 33.3 g/dl (32.0-35.9); MEAN CELL VOLUME 95.4 fl (80-96); MEAN PLT VOLUME 9.7 fl (7.5-11.1); MONO % 3.9 % (3.8-10.2); NEUT % 83.4 % (42.8-82.8); PLATELET COUNT 159 K/MM3 (134-434); RBC 3.97 M/mm3 (4.00-5.60); RDW 13.5 % (11.9-15.9)
[2019-04-01 06:49] LABS: ALBUMIN 2.5 g/dl (3.4-5.0); BILIRUBIN,TOTAL 0.4 mg/dL (0.2-1); BLOOD UREA NITROGEN 25.4 mg/dL (7-18); CALCIUM 8.7 mg/dL (8.5-10.1); CREATININE 1.1 mg/dL (0.55-1.3); POTASSIUM 4.6 mmol/L (3.5-5.1); TOT PROT 6.1 g/dl (6.4-8.2)
[2019-04-01] MEDS: ALBUTEROL SO4 2.5/IPRATROPIUM 0.5 INH SOL 3 ML VIAL.NEB. NEB SCH ×2 (07:40→11:30)
[2019-04-01] MEDS ORDERED: PT OWN MED DRAWER 7, Y5N ONE ×3 (09:01→13:11)
[2019-04-01] MEDS: HEPARIN NA (PORCINE) 5,000 UNITS/ML 1ML VIAL SQ SCH (09:48)
[2019-04-01] MEDS: clonazePAM 2 MG TABLET PO SCH (09:48)
[2019-04-01] MEDS: ZINC SULFATE 220 MG CAPSULE (FP) PO SCH (09:49)
[2019-04-01] MEDS: methylPREDNISolone NA SUCC 40 MG/1 ML VIAL IVPUSH SCH (09:49)
[2019-04-01] MEDS: CARVEDILOL 3.125 MG TABLET (FP) PO SCH (09:50)
[2019-04-01] MEDS: PANTOPRAZOLE 40 MG TABLET (FP) PO SCH (09:51)
[2019-04-01] MEDS: DIVALPROEX NA *ER* EXTEND REL 500 MG TABLET.SA (FP) PO SCH (09:55)
[2019-04-01] MEDS: QUEtiapine FUMARATE 100 MG TABLET (FP) PO SCH (09:55)
[2019-04-01] MEDS: OLANZapine 10 MG TABLET PO SCH (09:55)
[2019-04-01] MEDS: SILVER SULFADIAZINE 1% TOP CREAM 50 GM JAR TP SCH (10:30)
--- NOTE | 2019-04-01 10:59 | PN ---
Progress Note (short form) - Note Progress Note: s: confused, not answering questions appropriately Current Medications Generic Name Dose Route Start Last Admin Trade Name Freq PRN Reason Stop Dose Admin Acetaminophen 650 mg 03/27/19 17:33 Tylenol - PO Q6H PRN PAIN LEVEL 1-5 Albuterol/Ipratropium 1 amp 03/27/19 20:00 04/01/19 07:40 Duoneb - NEB 1 amp RQID [facility] Administration Atorvastatin Calcium 10 mg 03/27/19 22:00 03/31/19 22:18 Lipitor - PO 10 mg HS [facility] Administration Carbidopa/Levodopa 1 each 03/27/19 22:00 04/01/19 06:05 Sinemet 25/100 - PO 1 each TID [facility] Administration Carvedilol 3.125 mg 03/27/19 22:00 04/01/19 09:50 Coreg - PO 3.125 mg BID [facility] Administration Clonazepam 1 mg 03/28/19 12:30 04/01/19 09:48 Klonopin - PO 1 mg BID [facility] Administration Divalproex Sodium 1,000 mg 03/28/19 10:00 04/01/19 09:55 Depakote *Er* - PO 1,000 mg DAILY [facility] Administration Heparin Sodium (Porcine) 5,000 unit 03/27/19 22:00 04/01/19 09:48 Heparin - SQ 5,000 unit BID [facility] Administration Piperacillin Sod/Tazobactam 50 mls @ 100 mls/hr 03/28/19 02:00 04/01/19 09:46 Sod 3.375 gm/ Dextrose IVPB 100 mls/hr Q8H-IV [facility] Administration Protocol Insulin Aspart 1 vial 03/28/19 07:00 04/01/19 06:20 Novolog Vial Sliding Scale - SQ 5 units TIDAC [facility] Administration Protocol Levothyroxine Sodium 112 mcg/ 137 mcg 03/28/19 07:00 04/01/19 09:46 Levothyroxine Sodium 25 mcg PO 137 mcg DAILY@0700 [facility] Administration Methylprednisolone Sodium Succinate 40 mg 03/31/19 10:00 04/01/19 09:49 Solu-Medrol - IVPUSH 40 mg BID [facility] Administration Olanzapine 20 mg 03/28/19 22:00 04/01/19 09:55 Zyprexa - PO 20 mg HS [facility] Administration Pantoprazole Sodium 40 mg 03/28/19 10:00 04/01/19 09:51 Protonix - PO 40 mg DAILY [facility] Administration Quetiapine Fumarate 200 mg 03/31/19 09:53 04/01/19 09:55 Seroquel - PO 200 mg BID [facility] Administration Silver Sulfadiazine 1 applic 03/27/19 22:00 04/01/19 10:30 Silvadene - TP 1 applic BID [facility] Administration Zinc Sulfate 220 mg 03/28/19 10:00 04/01/19 09:49 Orazinc - PO 220 mg DAILY [facility] Administration Vital Signs Period Temp Pulse Resp BP Sys/Hanna Pulse Ox Last 24 Hr 97.8 F-97.9 F 66-88 20-20 119-131/68-81 94 Constitutional: Yes: Calm Respiratory: Yes: Rhonchi Cardiovascular: Yes: Regular Rate and Rhythm JVD: No Heart Sounds: Yes: S1, S2 Murmur: Yes: Systolic Murmur (loud systolic murmur RSB) Edema: trace Neuro: alert psych: not agitated no jaundice, diaphoresis CBC, BMP 04/01/19 05:30 04/01/19 05:30 NSR 87bpm, poor R wave Imaging - Results Chest X-ray: Image Reviewed MRI: Image Reviewed Assessment/Plan 73 year old male, with a significant past medical history of Parkinson's, dementia, HTN, COPD, schizophrenia, bipolar who presents to the emergency department with via EMS from [facility] with lethargy and shortness of breath. Patient has been receiving [facility] [place] insuffiency. IMP: Murmur Lethargy of unclear etiology Hypernatremia Parkinson's disease Dementia Psych disorder REC: 1. holding lasix, vol stable 2. Echo to assess EF, murmur - pending 3. Do not suspect borderline TnI represents ACS. Flat, nonischemic ECG. May be borderline elevated in setting of chronic valvular heart dz (murmur), suspect the BNP is from same. 4. tele dc'ed
--- NOTE | 2019-04-01 11:05 | PN ---
Progress Note, Physician History of Present Illness: pulmonary alert,comfortable,-resp distress - Current Medication List Current Medications: Active Medications Acetaminophen (Tylenol -) 650 mg PO Q6H PRN PRN Reason: PAIN LEVEL 1-5 Albuterol/Ipratropium (Duoneb -) 1 amp NEB RQID [facility] Last Admin: 04/01/19 07:40 Dose: 1 amp Atorvastatin Calcium (Lipitor -) 10 mg PO HS [facility] Last Admin: 03/31/19 22:18 Dose: 10 mg Carbidopa/Levodopa (Sinemet 25/100 -) 1 each PO TID [facility] Last Admin: 04/01/19 06:05 Dose: 1 each Carvedilol (Coreg -) 3.125 mg PO BID [facility] Last Admin: 04/01/19 09:50 Dose: 3.125 mg Clonazepam (Klonopin -) 1 mg PO BID [facility] Last Admin: 04/01/19 09:48 Dose: 1 mg Divalproex Sodium (Depakote *Er* -) 1,000 mg PO DAILY [facility] Last Admin: 04/01/19 09:55 Dose: 1,000 mg Heparin Sodium (Porcine) (Heparin -) 5,000 unit SQ BID [facility] Last Admin: 04/01/19 09:48 Dose: 5,000 unit Piperacillin Sod/Tazobactam (Sod 3.375 gm/ Dextrose) 50 mls @ 100 mls/hr IVPB Q8H-IV [facility]; Protocol Last Admin: 04/01/19 09:46 Dose: 100 mls/hr Insulin Aspart (Novolog Vial Sliding Scale -) 1 vial SQ TIDAC [facility]; Protocol Last Admin: 04/01/19 06:20 Dose: 5 units Levothyroxine Sodium 112 mcg/ (Levothyroxine Sodium 25 mcg) 137 mcg PO DAILY@ 0700 [facility] Last Admin: 04/01/19 09:46 Dose: 137 mcg Methylprednisolone Sodium Succinate (Solu-Medrol -) 40 mg IVPUSH BID [facility] Last Admin: 04/01/19 09:49 Dose: 40 mg Olanzapine (Zyprexa -) 20 mg PO HS [facility] Last Admin: 04/01/19 09:55 Dose: 20 mg Pantoprazole Sodium (Protonix -) 40 mg PO DAILY [facility] Last Admin: 04/01/19 09:51 Dose: 40 mg Quetiapine Fumarate (Seroquel -) 200 mg PO BID [facility] Last Admin: 04/01/19 09:55 Dose: 200 mg Silver Sulfadiazine (Silvadene -) 1 applic TP BID [facility] Last Admin: 04/01/19 10:30 Dose: 1 applic Zinc Sulfate (Orazinc -) 220 mg PO DAILY [facility] Last Admin: 04/01/19 09:49 Dose: 220 mg - Objective Vital Signs: Vital Signs Temperature 97.8 F 04/01/19 02:00 Pulse Rate 66 04/01/19 02:00 Respiratory Rate 20 04/01/19 02:00 Blood Pressure 131/81 04/01/19 02:00 O2 Sat by Pulse Oximetry (%) 94 L 03/31/19 21:00 Constitutional: Yes: Well Nourished, Calm Eyes: Yes: WNL HENT: Yes: WNL Neck: Yes: WNL Cardiovascular: Yes: Regular Rate and Rhythm, S1, S2 Respiratory: Yes: Diminished Gastrointestinal: Yes: Normal Bowel Sounds, Soft Extremities: Yes: WNL Edema: No Labs: CBC, BMP 04/01/19 05:30 04/01/19 05:30 INR, PTT INR 1.07 (0.83-1.09) 03/27/19 12:25 Problem List - Problems (1) Schizophrenia Code(s): F20.9 - SCHIZOPHRENIA, UNSPECIFIED (2) Acute exacerbation of chronic obstructive pulmonary disease (COPD) Code(s): J44.1 - CHRONIC OBSTRUCTIVE PULMONARY DISEASE W (ACUTE) EXACERBATION (3) Dementia Code(s): F03.90 - UNSPECIFIED DEMENTIA WITHOUT BEHAVIORAL DISTURBANCE (4) HTN (hypertension) Code(s): I10 - ESSENTIAL (PRIMARY) HYPERTENSION (5) Lethargy Code(s): R53.83 - OTHER FATIGUE (6) Parkinson's disease Code(s): G20 - PARKINSON'S DISEASE (7) Acute respiratory failure with hypoxia and hypercapnia Code(s): J96.01 - ACUTE RESPIRATORY FAILURE WITH HYPOXIA; J96.02 - ACUTE RESPIRATORY FAILURE WITH HYPERCAPNIA (8) Hypernatremia Code(s): E87.0 - HYPEROSMOLALITY AND HYPERNATREMIA Assessment/Plan IMP ACUTE HYPOXEMIC/HYPERCAPNEIC RESPIRATORY FAILURE IMPROVED COPD WITH ACUTE EXACERBATION IMPROVING LETHARGY improved HTN PARKINSONS SCHIZOPHRENIA + TROPONIN HYPERNATREMIA improving NOVA PLAN MEDROL TAPER INHALED BRONCHODILATORS F/U ABG ON RA NIPPV NEEDED MONITOR LYTES,RENAL FUNCTION,NA LEVEL DR ALVAREZ Problem List - Problems (1) Schizophrenia Code(s): F20.9 - SCHIZOPHRENIA, UNSPECIFIED (2) Acute exacerbation of chronic obstructive pulmonary disease (COPD) Code(s): J44.1 - CHRONIC OBSTRUCTIVE PULMONARY DISEASE W (ACUTE) EXACERBATION (3) Dementia Code(s): F03.90 - UNSPECIFIED DEMENTIA WITHOUT BEHAVIORAL DISTURBANCE (4) HTN (hypertension) Code(s): I10 - ESSENTIAL (PRIMARY) HYPERTENSION (5) Lethargy Code(s): R53.83 - OTHER FATIGUE (6) Parkinson's disease Code(s): G20 - PARKINSON'S DISEASE (7) Acute respiratory failure with hypoxia and hypercapnia Code(s): J96.01 - ACUTE RESPIRATORY FAILURE WITH HYPOXIA; J96.02 - ACUTE RESPIRATORY FAILURE WITH HYPERCAPNIA (8) Hypernatremia Code(s): E87.0 - HYPEROSMOLALITY AND HYPERNATREMIA
[2019-04-01] MEDS ORDERED: INSULIN (NOVOLOG) ASPART 100 UNITS/ML 10ML VIAL ONE (11:06)
--- NOTE | 2019-04-01 11:14 | DS ---
Physical Examination Vital Signs: Vital Signs Temperature 97.8 F 04/01/19 02:00 Pulse Rate 66 04/01/19 02:00 Respiratory Rate 20 04/01/19 02:00 Blood Pressure 131/81 04/01/19 02:00 O2 Sat by Pulse Oximetry (%) 94 L 03/31/19 21:00 Constitutional: Yes: No Distress, Calm Cardiovascular: Yes: Regular Rate and Rhythm Respiratory: Yes: Diminished Gastrointestinal: Yes: Normal Bowel Sounds, Soft, Abdomen, Obese. No: Tenderness Edema: No Labs: CBC, BMP 04/01/19 05:30 04/01/19 05:30 Discharge Summary Problems reviewed: Yes Reason For Visit: ELEV TROPONIN LEVEL,LETHARGY,CHF,HYPERNATREMIA Current Active Problems Acute exacerbation of chronic obstructive pulmonary disease (COPD) (Acute) Acute respiratory failure with hypoxia and hypercapnia (Acute) CHF exacerbation (Acute) Fever (Acute) Hypernatremia (Acute) Schizophrenia (Acute) Hospital Course: ADMISSION HISTORY The patient is a 73 year old male, with a significant past medical history of Parkinson's, dementia, HTN, COPD, schizophrenia, bipolar who presents to the emergency department with via EMS from [facility] with lethargy and shortness of breath. pt found in [facility] exac as well as COPD given iv lasix Placed on Bipap Also received vano and zosyn as has fever- cultures send. admitted to tele Case d/w er physician Chart reviewed Ekg- ok +ve troponins Elevated bnp Pt has been treated with fluids in [facility] for Acute renal insufficiency. Pt seen/ examined in tele On bipap Drowsy but arousable. Pt is poor historian All h/o from records On BIPAP [facility] records reviewed- On multiple psych [facility] Hospital course seen by ID, Cardiology and Pulmonary IV lasix dc as he became hypernatremic- solumedrol tapered was on IV zosyn -- now changed to PO antibiotics Pt is at baseline As per Cardiology-- > Do not suspect borderline TnI represents ACS. Flat, nonischemic ECG. May be borderline elevated in setting of chronic valvular heart dz (murmur), suspect the BNP is from same. Pt better stable for dc to [facility] was not using the BIPAP here now-- it was on standby Condition: Good - Instructions Referrals: Sharon Bergman MD [Primary Care Provider] - Disposition: [facility] FACILITY - Home Medications Comprehensive Discharge Medication List: Ambulatory Orders Acetaminophen 650 mg PO ASDIR 03/27/19 Albuterol 2.5/Ipratropium 0.5 [Duoneb -] 1 neb IH QID 03/27/19 Albuterol Sulfate Inhaler - [Ventolin Hfa Inhaler -] 1 - 2 inh PO QID 03/27/19 Ascorbic Acid [Vitamin C] 500 mg PO DAILY 03/27/19 Atorvastatin Ca [Lipitor] 10 mg PO HS 03/27/19 Carbidopa/Levodopa 25/ [Sinemet 25 -] 1 each PO TID 03/27/19 Divalproex *ER* [Depakote *ER* -] 1,000 mg PO HS 03/27/19 Divalproex *ER* [Depakote *ER* -] 250 mg PO HS 03/27/19 Furosemide [Lasix] 20 mg PO DAILY 03/27/19 Insulin Lispro [Humalog] 100 unit SQ ASDIR 03/27/19 Ipratropium 0.02% Nebulizer [Atrovent *Nebulizer*] 0.5 mg IH DAILY 03/27/19 Levothyroxine Sodium [Synthroid] 137 mcg PO DAILY 03/27/19 Metoprolol Succinate [Kapspargo Sprinkle] 25 mg PO DAILY 03/27/19 Mineral Oil/Hydrophil Petrolat [Aquaphor Healing Ointment] 50 gm TP ASDIR Olanzapine 20 mg PO HS 03/27/19 Pantoprazole Sodium 40 mg PO DAILY 03/27/19 Quetiapine Fumarate [Seroquel] 300 mg PO BID 03/27/19 Silver Sulfadiazine 1% Top Cr [Silvadene -] 1 applic TP BID 03/27/19 Vit A/Vitamin D3/E/Aloe V/Zinc [Periguard Ointment] 100 gm TP ASDIR 03/27/19 Zinc Sulfate [Orazinc] 220 mg PO DAILY 03/27/19 clonazePAM [Clonazepam] 2 mg PO BID 03/27/19
--- NOTE | 2019-04-01 12:05 | ECHO ---
Version: 1 Name: RENEE FRANK Exam: Adult Echocardiogram Study Date: 04/01/2019, 7:51 AM Age: 73 Years Procedure The study was technically limited with all images being suboptimal in quality. Left Ventricle The left ventricular size, thickness and function are normal. Ejection Fraction = 60%. The transmitr al spectral Doppler flow pattern is suggestive of impaired LV relaxation. Right Ventricle The right ventricle is normal in size and function. Atria The left atrium is mildly dilated. Right atrium not well visualized. Mitral Valve There is mild to moderate mitral annular calcification. Tricuspid Valve The tricuspid valve is not well visualized. Aortic Valve Calcified aortic valve. Moderate valvular aortic stenosis. Pulmonic Valve The pulmonic valve is not well visualized. Great Vessels The aortic root is normal size. Normal aortic arch, descending and ascending aorta. Pericardium/Pleura There is no pericardial effusion. Summary Statements The study was technically limited with all images being suboptimal in quality. The left ventricular size, thickness and function are normal Ejection Fraction = 60%. The transmitral spectral Doppler flow pattern is suggestive of impaired LV relaxation. The right ventricle is normal in size and function. The left atrium is mildly dilated. Right atrium not well visualized. There is mild to moderate mitral annular calcification. The tricuspid valve is not well visualized. Moderate valvular aortic stenosis. The pulmonic valve is not well visualized. The aortic root is normal size. Normal aortic arch, descending and ascending aorta There is no pericardial effusion. Apolinar Garcia 04/01/2019, 12:05 PM Ordering Physician: Sharon Bergman Performed By: Jen Barton
[2019-04-01 12:30] VITALS: PULSE 64
[2019-04-01 12:59] VITALS: BP 112/65; TEMP 98.2
== END 2019-04-01 13:44 | DRG 291 ==
LOC: JER 12:02 → JERBED 13:41 → J4W 17:31
PROVIDERS: ADMIT Internal Medicine; ATTEND Internal Medicine
DX: I11.0 Hypertensive heart disease with heart failure (principal); J96.01 Acute respiratory failure with hypoxia; J96.02 Acute respiratory failure with hypercapnia; J44.1 Chronic obstructive pulmonary disease with (acute) exacerbation; E87.0 Hyperosmolality and hypernatremia; N17.9 Acute kidney failure, unspecified; I50.22 Chronic systolic (congestive) heart failure; E11.9 Type 2 diabetes mellitus without complications; F03.90 Unspecified dementia, unspecified severity, without behavioral disturbance, psychotic disturbance, mood disturbance, and anxiety; D64.9 Anemia, unspecified; K59.09 Other constipation; F31.9 Bipolar disorder, unspecified; F25.9 Schizoaffective disorder, unspecified; G47.00 Insomnia, unspecified; E03.9 Hypothyroidism, unspecified; G20 Parkinson's disease; R60.9 Edema, unspecified; R50.9 Fever, unspecified; E66.9 Obesity, unspecified; Z68.33 Body mass index [BMI] 33.0-33.9, adult
CPT/HCPCS: 36415; 36600; 71045-TC-FY; 80053; 80061; 81003; 82375; 82803; 82962; 83036; 83050; 83605; 83721; 83735; 83880; 83930; 83935; 84100; 84443; 84484; 85025; 85610; 85730; 87040; 87070; 87086; 87186; 87205; 87804; 87899; 93005; 93010; 93306-TC; 94640; 94660; 99284-25; J1644

== ENCOUNTER 2020-08-04 20:56 | Emergency (ER) | payer OTHER ==
[2020-08-04 21:13] VITALS: TEMP 97.6; BMI 27.4
[2020-08-05 04:57] VITALS: BP 144/90; PULSE 81
== END 2020-08-05 04:37 ==
LOC: JER 20:56
DX: S00.83XA Contusion of other part of head, initial encounter (principal); S09.90XA Unspecified injury of head, initial encounter
CPT/HCPCS: 70450-TC; 72125-TC; 82962; 99285-25

== ENCOUNTER 2021-04-03 14:23 | Emergency (ER) | payer OTHER ==
[2021-04-03 15:16] VITALS: BMI 31.7
[2021-04-03] MEDS ORDERED: LIDOCAINE 1%/EPI 1:100000 (20 ML MULTI DOSE VIAL) ONE (18:34)
[2021-04-03] MEDS ORDERED: BACITRACIN 15 GM TUBE TOPICAL OINTMENT TP ONE (18:45)
[2021-04-03] MEDS ORDERED: BACITRACIN 0.9 GM PACKET ONE (18:50)
[2021-04-03] MEDS ORDERED: BACITRACIN 15 GM TUBE TOPICAL OINTMENT ONE (19:15)
[2021-04-04 01:37] VITALS: TEMP 97.3
[2021-04-04 07:29] VITALS: BP 151/83; PULSE 80
== END 2021-04-04 09:00 ==
LOC: JER 14:23
PROC: 0HQ0XZZ Repair Scalp Skin, External Approach (ICD-10-PCS; principal; 2021-04-03)
DX: S01.01XA Laceration without foreign body of scalp, initial encounter (principal); W07.XXXA Fall from chair, initial encounter
CPT/HCPCS: 70450-TC; 72125-TC; 99284-25

== ENCOUNTER 2021-08-29 21:02 | Emergency (ER) | payer OTHER ==
[2021-08-29 22:27] VITALS: BP 128/76; PULSE 92; TEMP 96.8; BMI 36.0
== END 2021-08-30 00:35 ==
LOC: JER 21:02
DX: S01.81XA Laceration without foreign body of other part of head, initial encounter (principal); Y04.8XXA Assault by other bodily force, initial encounter
CPT/HCPCS: 70450-TC; 70486-TC; 72125-TC; 93005; 93010; 99284-25

== ENCOUNTER 2022-04-26 15:01 | Inpatient (IN) | payer OTHER ==
[2022-04-26 15:18] VITALS: BMI 26.6
[2022-04-26] MEDS ORDERED: ONDANSETRON 4 MG/2 ML VIAL IVPUSH ONE (16:15)
[2022-04-26] MEDS ORDERED: ONDANSETRON 4 MG/2 ML VIAL ONE (16:47)
[2022-04-26 16:49] LABS: BASO % 0.5 % (0-2.0); EOS % 1.9 % (0-4.5); HEMATOCRIT 40.8 % (35.4-49); HEMOGLOBIN 13.5 GM/dL (11.7-16.9); LYMPH % 19.9 % (8-40); MCH 30.3 pg (25.7-33.7); MEAN CELL VOLUME 91.9 fl (80-96); MEAN PLT VOLUME 7.8 fl (7.5-11.1); MONO % 10.7 % (3.8-10.2); PLATELET COUNT 227 10^3/uL (134-434); RBC 4.44 M/mm3 (4.00-5.60); RDW 15.2 % (11.9-15.9)
[2022-04-26 17:02] LABS: ALBUMIN 3.8 g/dl (3.4-5.0); BLOOD UREA NITROGEN 17.6 mg/dL (7-18); MAGNESIUM 2.4 mg/dL (1.8-2.4)
[2022-04-26 17:05] LABS: CREATININE 0.8 mg/dL (0.55-1.3)
[2022-04-26 17:07] LABS: BILIRUBIN,TOTAL 0.7 mg/dL (0.2-1); TOT PROT 8.1 g/dl (6.4-8.2)
[2022-04-26 17:10] LABS: N-TERMINAL BNP 1653.9 pg/ml (5-450)
[2022-04-26 17:15] LABS: URINE APPEARANCE CLOUDY; URINE BILIRUBIN NEGATIVE (NEGATIVE); URINE COLOR YELLOW; URINE GLUCOSE (UA) NEGATIVE (NEGATIVE); URINE KETONE TRACE (NEGATIVE); URINE LEUK ESTERASE NEGATIVE (NEGATIVE); URINE NITRITE NEGATIVE (NEGATIVE); URINE PROTEIN NEGATIVE (NEGATIVE)
[2022-04-26] MEDS ORDERED: LORazepam 1 MG TABLET PO ONE (17:52)
[2022-04-26] MEDS ORDERED: LORazepam 1 MG TABLET ONE (18:00)
[2022-04-26] MEDS ORDERED: ALBUTEROL SO4 2.5/IPRATROPIUM 0.5 INH SOL 3 ML VIAL.NEB. NEB PRN (23:57)
[2022-04-27] MEDS: LORazepam 1 MG TABLET PO SCH ×3 (00:23→16:29)
[2022-04-27] MEDS: LEVOTHYROXINE 112 MCG, LEVOTHYROXINE 25 MCG PO SCH (06:51)
[2022-04-27] MEDS: INSULIN SLIDING SCALE (NOVOLOG) 1 VIAL SQ SCH ×4 (06:51→21:43)
[2022-04-27] MEDS: CARBIDOPA/LEVODOPA 25/100 TABLET (FP) PO SCH ×3 (06:51→21:43)
[2022-04-27 07:39] LABS: BASO % 0.5 % (0-2.0); EOS % 3.1 % (0-4.5); HEMOGLOBIN 12.7 GM/dL (11.7-16.9); LYMPH % 22.3 % (8-40); MCHC 33.5 g/dl (32.0-35.9); MEAN CELL VOLUME 92.4 fl (80-96); MEAN PLT VOLUME 8.1 fl (7.5-11.1); MONO % 13.6 % (3.8-10.2); NEUT % 60.5 % (42.8-82.8); PLATELET COUNT 228 10^3/uL (134-434); RBC 4.11 M/mm3 (4.00-5.60); RDW 15.3 % (11.9-15.9); WHITE BLOOD COUNT 9.7 K/mm3 (4.0-10.0)
[2022-04-27 08:01] LABS: CALCIUM 9.5 mg/dL (8.5-10.1)
[2022-04-27 08:02] LABS: ALBUMIN 3.4 g/dl (3.4-5.0); BLOOD UREA NITROGEN 15.8 mg/dL (7-18); MAGNESIUM 2.2 mg/dL (1.8-2.4)
[2022-04-27 08:05] LABS: CREATININE 0.9 mg/dL (0.55-1.3); PHOSPHOROUS 3.1 mg/dL (2.5-4.9)
[2022-04-27 08:06] LABS: TOT PROT 7.5 g/dl (6.4-8.2)
[2022-04-27 08:07] LABS: BILIRUBIN,TOTAL 0.7 mg/dL (0.2-1)
[2022-04-27] MEDS ORDERED: QUEtiapine FUMARATE 50 MG TABLET PO SCH (10:00)
[2022-04-27] MEDS ORDERED: CEFTRIAXONE 1 GM in DEXTROSE 5%-WATER - 50 ML IVPB SCH (10:00)
[2022-04-27] MEDS ORDERED: OLANZapine 10 MG TABLET PO SCH (10:00)
[2022-04-27] MEDS ORDERED: PANTOPRAZOLE SODIUM 40 MG VIAL IVPUSH SCH (10:00)
[2022-04-27] MEDS: ENOXAPARIN NA (PORCINE) 40 MG/0.4 ML DISP.SYRIN SQ SCH (10:17)
[2022-04-27] MEDS: DIVALPROEX NA *ER* EXTEND REL 500 MG TABLET.SA (FP) PO SCH ×2 (14:32→21:43)
[2022-04-27] MEDS ORDERED: DEXTROSE 5%-NORMAL SALINE 1,000 ML IV SCH (16:00)
[2022-04-27] MEDS: OLANZapine 5 MG TABLET PO SCH (21:43)
[2022-04-27] MEDS ORDERED: ATORVASTATIN CA 10 MG TABLET (FP) PO SCH (22:00)
[2022-04-27] MEDS ORDERED: POLYETHYLENE GLYCOL (HEALTHYLAX) 3350 17 GM PACKET PO SCH (22:00)
[2022-04-27] MEDS ORDERED: QUEtiapine FUMARATE 100 MG TABLET (FP) PO SCH (22:00)
[2022-04-28] MEDS: LORazepam 1 MG TABLET PO SCH ×4 (00:41→16:29)
[2022-04-28] MEDS: LEVOTHYROXINE 112 MCG, LEVOTHYROXINE 25 MCG PO SCH (06:00)
[2022-04-28] MEDS: INSULIN SLIDING SCALE (NOVOLOG) 1 VIAL SQ SCH ×3 (06:01→17:05)
[2022-04-28] MEDS: CARBIDOPA/LEVODOPA 25/100 TABLET (FP) PO SCH ×2 (06:01→13:39)
[2022-04-28] MEDS: ENOXAPARIN NA (PORCINE) 40 MG/0.4 ML DISP.SYRIN SQ SCH (09:46)
[2022-04-28] MEDS: OLANZapine 5 MG TABLET PO SCH (09:47)
[2022-04-28] MEDS: DIVALPROEX NA *ER* EXTEND REL 500 MG TABLET.SA (FP) PO SCH (09:48)
[2022-04-28] MEDS ORDERED: PANTOPRAZOLE 20 MG TABLET PO SCH (10:00)
[2022-04-28 13:21] VITALS: RESP 18
[2022-04-28] MEDS ORDERED: POLYETHYLENE GLYCOL (HEALTHYLAX) 3350 17 GM PACKET PO SCH (14:00)
[2022-04-28 18:28] VITALS: BP 146/69; PULSE 74; TEMP 97.3
== END 2022-04-28 20:40 | DRG 689 ==
LOC: JER 15:01 → JERBED 19:24 → J4S 23:11 → OBSVTOIN 23:50
PROVIDERS: ADMIT Internal Medicine; ATTEND Internal Medicine
DX: N39.0 Urinary tract infection, site not specified (principal); G93.41 Metabolic encephalopathy; K92.0 Hematemesis; R04.2 Hemoptysis; E11.9 Type 2 diabetes mellitus without complications; I50.9 Heart failure, unspecified; I10 Essential (primary) hypertension; F03.90 Unspecified dementia, unspecified severity, without behavioral disturbance, psychotic disturbance, mood disturbance, and anxiety; J44.9 Chronic obstructive pulmonary disease, unspecified; E03.9 Hypothyroidism, unspecified; B96.89 Other specified bacterial agents as the cause of diseases classified elsewhere; I25.10 Atherosclerotic heart disease of native coronary artery without angina pectoris; G20 Parkinson's disease; K21.9 Gastro-esophageal reflux disease without esophagitis; K59.00 Constipation, unspecified; B96.1 Klebsiella pneumoniae [K. pneumoniae] as the cause of diseases classified elsewhere; F25.0 Schizoaffective disorder, bipolar type
CPT/HCPCS: 0241U-QW; 36415; 70450-TC; 71045-TC-FY; 74176-TC; 80053; 80164; 81003; 82962; 83036; 83605; 83690; 83735; 83880; 84100; 84484; 85025; 86850; 86900; 86901; 87040; 87086; 93005; 93010; 99285-25; G0378